=== PATIENT | female | born 1935 | race Caucasian/White ===

== ENCOUNTER → 2016-11-27 | Day surgery (SDC) | payer MEDICARE ==
[~2016-11-27] MED LIST: ASPI81CH CHEW; BUPIVACAINE HCL PF 0.5% 30 ML VIAL ONE; BUPIVACAINE HCL PF 0.75% 30 ML VIAL ONE; CALC250T PO; HYDR-3583 PO; LACTCAP8 PO; LOSA100T PO; OMEGCAP PO; OMEP20TA PO; PROPOFOL 200 MG/20 ML AMP IV ONE; SYNT25TA PO; TRIA37.53 PO; TRIAMCINOLONE ACETONIDE 40 MG/ML VIAL I-ARTICULR ONE; VITA10003 PO; methylPREDNISolone ACETATE 40 MG/ML VIAL I-ARTICULR ONE
--- NOTE | 2016-12-04 00:09 | M6 ---
cc: TIMOTHY ROMERO M.D. DATE: 11/27/2016 DATE OF : 1935 PROCEDURE Fluoroscopically guided injection right lumbar facet joints (right L2-3, L3-4, L4-5 and L5-S1 facet joints). History and physical was completed and signed. Consent was signed. Procedure site was marked. Medications were listed and reconciled. Pain score was recorded. Allergies were noted. Time out was taken. Fluoroscopy time was recorded where applicable. Sedation was administered or directed by Dr. Romero. The patient was given oxygen. The patient was monitored by a registered nurse. Total procedure time was greater than 15 minutes. PROCEDURE NOTE: IV was started, blood pressure cuff, pulse oximeter and EKG were applied. The patient was placed in the prone position on a Paul table sedated with small amounts of propofol titrated to effect. Vital signs were monitored and remained stable throughout the procedure. The lumbar area was prepped with alcohol and 10% Betadine solution, draped with sterile drapes. Fluoroscopy was used in a Brett dog view to clearly visualize the right lumbar facet joints at L2-3, L3-4, L4-5 and L5-S1. Separate sterile 3-1/2 inch 25-gauge spinal needles were advanced into these joints under fluoroscopic guidance. There was negative aspiration for blood or any other type of fluid and at each location the patient was given 1 mL of Marcaine 0.75% which contained 10 mg of Kenalog. Following the procedure the patient was taken to the recovery room with stable vital signs neurologically intact. She will be evaluated immediately and with followup to determine if she has a subjective decrease in her usual pain and a corresponding objective increase her functional capabilities. WMD RENUKA Carvalho/RONNY /9:41 AM /11:53 PM
== END | disposition home or self-care (01) ==
LOC: PHSDC 08:24
PROVIDERS: ATTEND Pain Medicine Interventional Pain Medicine
DX: M54.5 Low back pain (principal)
CPT/HCPCS: 64493; 64494; 64495; 99152; J1030; J3301

== ENCOUNTER 2017-08-14 06:56 | Day surgery (SDC) | payer MEDICARE ==
[~2017-08-14 06:56] MED LIST changes: +ALIG4CAP PO; -ASPI81CH CHEW; -BUPIVACAINE HCL PF 0.5% 30 ML VIAL ONE; -BUPIVACAINE HCL PF 0.75% 30 ML VIAL ONE; -CALC250T PO; +FERR325T8 PO; +FLUTI110I INH; +HYDR-3516 PO; +LEVO25TA4 PO; -LOSA100T PO; +MULTTAB67 PO; -OMEGCAP PO; -OMEP20TA PO; -PROPOFOL 200 MG/20 ML AMP IV ONE; -SYNT25TA PO; -TRIAMCINOLONE ACETONIDE 40 MG/ML VIAL I-ARTICULR ONE; -VITA10003 PO; -methylPREDNISolone ACETATE 40 MG/ML VIAL I-ARTICULR ONE
[2017-08-14] MEDS ORDERED: VITA100064 PO (07:22)
[2017-08-14] MEDS ORDERED: AMIT10TA6 PO (07:22)
[2017-08-14] MEDS ORDERED: ASPI81CH7 CHEW (07:22)
[2017-08-14] MEDS ORDERED: LOSA100T PO (07:22)
[2017-08-14] MEDS ORDERED: OMEP20TA PO (07:22)
[2017-08-14] MEDS ORDERED: CALC250T PO (07:22)
== END 2017-08-14 07:20 | disposition home or self-care (01) ==
LOC: HRIP 06:56 → HROP 06:56
PROVIDERS: ATTEND Neurological Surgery
DX: M48.061 Spinal stenosis, lumbar region without neurogenic claudication (principal); Z53.09 Procedure and treatment not carried out because of other contraindication

== ENCOUNTER 2017-09-01 09:30 | Emergency (ER) | payer MEDICARE ==
[~2017-09-01] VITALS: Ht 160 cm; Wt 72.0 kg
[~2017-09-01 09:30] MED LIST changes: -ALIG4CAP PO; +AMIT10TA6 PO; +ASPI81CH7 CHEW; +CALC250T PO; -FERR325T8 PO; -HYDR-3516 PO; -HYDR-3583 PO; -LEVO25TA4 PO; +LOSA100T PO; -MULTTAB67 PO; +OMEP20TA PO; +VITA100064 PO
[2017-09-01 09:31] VITALS: BP 141/83; PULSE 82; RESP 15; TEMP 97.8; O2SAT 97
[2017-09-01] MEDS ORDERED: ONDANSETRON HCL 4 MG/2 ML VIAL IVP ONE (10:15)
[2017-09-01] MEDS ORDERED: SODIUM CHLORIDE 0.9% FLUSH 10 ML FLUSH IV FLUSH PRN (10:15)
[2017-09-01] MEDS ORDERED: URIB118C PO (10:25)
[2017-09-01] MEDS ORDERED: OMEGCAP PO (10:25)
[2017-09-01] MEDS ORDERED: MULT1TAB46 (10:25)
[2017-09-01] MEDS ORDERED: MACR100C2 PO (10:25)
[2017-09-01] MEDS ORDERED: FERR325C PO (10:25)
[2017-09-01 10:43] LABS: BASOPHIL # 0.1 TH/MM3 (0-0.2); EOSINOPHIL # 0.3 TH/MM3 (0-0.4); EOSINOPHIL % 4.7 % (0.0-4.0); HEMATOCRIT 36.7 % (35.0-46.0); HEMO FLAGS DIFF FINAL; LYMPH % 13.1 % (9.0-44.0); LYMPHOCYTE # 0.9 TH/MM3 (1.0-4.8); MEAN CELL VOLUME 88.4 FL (80.0-100.0); MEAN CORPUSCULAR HEMOGLOBIN 30.2 PG (27.0-34.0); MEAN CORPUSCULAR HGB CONC 34.2 % (32.0-36.0); MONO % 9.2 % (0.0-8.0); PLATELET COUNT 284 TH/MM3 (150-450); RED BLOOD COUNT 4.15 MIL/MM3 (4.00-5.30); RED CELL DISTRIBUTION WIDTH 12.6 % (11.6-17.2); WHITE BLOOD COUNT 6.9 TH/MM3 (4.0-11.0)
[2017-09-01 10:54] LABS: BLOOD, URINE SMALL (NEG); COMMENT (UR) CULTURE INDICATED; CULTURE IF INDICATED CULTURE INDICATED; GLUCOSE,URINE NEG (NEG); KETONE, URINE NEG (NEG); NITRITE,URINE NEG (NEG); URINE COLOR YELLOW (YELLW/STRAW)
[2017-09-01 11:00] LABS: BICARBONATE 23.5 MEQ/L (21.0-32.0); POTASSIUM 3.1 MEQ/L (3.5-5.1)
--- NOTE | 2017-09-01 11:24 | PD ---
HPI Chief Complaint: Complaint Time Seen by Provider: 10:01 Travel History International Travel<30 days: No Contact w/Intl Traveler<30days: No Traveled to known affect area: No History of Present Illness HPI Patient's 82 years old and arrives with her son due to urinary frequency overnight causing insomnia. Additional complaints include anorexia vomiting generalized weakness abdominal cramping and diarrhea. She has a history of urinary tract infection and has been on different antibiotics and has been following with Dr. Donovan of urology. Currently she is on Macrobid. She was advised to self catheterize however due to arthritis is unable to. She's had no fever. PFSH Past Medical History Arthritis: Yes Asthma: No Autoimmune Disease: No Anxiety: No Heart Rhythm Problems: No Cancer: Yes (SKIN CANCER ON NOSE-) Cardiovascular Problems: Yes High Cholesterol: No Chemotherapy: No Chest Pain: Yes Congestive Heart Failure: No COPD: No Cerebrovascular Accident: No Diabetes: No Diminished Hearing: No Endocrine: No Gastrointestinal Disorders: Yes GERD: Yes Glaucoma: No Genitourinary: No Headaches: Yes Hepatitis: No Hiatal Hernia: Yes Hypertension: Yes Immune Disorder: No Kidney Stones: No Medical other: Yes (GERD;GI DISORDERS;DIARRHEA;HYPERCHOLESTEROLEMIA;) Musculoskeletal: Yes Neurologic: No Psychiatric: Yes (CLAUSTRAPHOBIC) Reproductive: No Respiratory: No Myocardial Infarction: No Radiation Therapy: No Renal Failure: No Seizures: No Sleep Apnea: No Thyroid Disease: No Ulcer: No Dilation and Curettage (D&C): Yes Past Surgical History Abdominal Surgery: No AICD: No Cardiac Surgery: No Ear Surgery: No Endocrine Surgery: No Eye Surgery: Yes (MARGARITA. CATARACT EXTRACT.) Genitourinary Surgery: No Gynecologic Surgery: Yes (D & C, UTERINE POLYPECTOMY) Neurologic Surgery: Yes (LUMBAR FUSION) Oral Surgery: Yes (UPPER DENTURES, T & A) Pacemaker: No Thoracic Surgery: No Other Surgery: Yes Social History Alcohol Use: Yes (occasional) Tobacco Use: No (STOPPED 30 YEARS AGO) Substance Use: No Allergies-Medications (Allergen,Severity, Reaction): Coded Allergies: niacin (Unverified Allergy, Severe, VISION CHANGES, 09/01/17) lactose (Unverified Allergy, Mild, 09/01/17) gi upsets Tlyscgr-Jlz-Emo Reductase Inhibitor (Verified Allergy, Unknown, 09/01/17) rosuvastatin (Verified Allergy, Unknown, 09/01/17) doxycycline (Verified Adverse Reaction, Unknown, vomiting, 09/01/17) Reported Meds & Prescriptions Reported Meds & Active Scripts Active Ativan (Lorazepam) 0.5 Mg Tab 0.5 Mg PO HS PRN Ceftin (Cefuroxime Axetil) 250 Mg Tab 250 Mg PO BID 7 Days Reported [place]-3 Fish Oil/Vitamin (Fish Oil-Cholecalciferol) 1,000-1,000 Mg Cap 1 Cap PO DAILY Uribel (Hylknfvrnoq-Zpish-Pyvqeooqg Blue) 1 Cap 118 Mg PO BID Macrobid (Nitrofurantoin Monoh/Nitrofur Macro) 100 Mg Cap 100 Mg PO BID Iron (Ferrous Sulfate) 325 Mg Cap 325 Mg PO EVERY OTHER DAY Multi Vitamin Daily (Multiple Vitamin) 1 Tab Tab Amitriptyline (Amitriptyline HCl) 10 Mg Tab 10 Mg PO HS Omeprazole 20 Mg Tab 20 Mg PO DAILY Vitamin D3 (Cholecalciferol) 1,000 Unit Tab 1,000 Units PO DAILY Calcium Citrate 250 Mg Calcium Tab 600 Mg PO DAILY Aspirin Children's (Aspirin) 81 Mg Chew 81 Mg CHEW DAILY Losartan (Losartan Potassium) 100 Mg Tab 100 Mg PO DAILY Flovent Hfa 12 GM Inh (Fluticasone Propionate) 110 Mcg/Act Inh 1 Puff INH BID Probiotic (Lactobacillus Acidophilus) 1 Cap Cap 1 Cap PO 3XWEEK Triamterene-Hydrochlorothiazide 37.5-25 Mg Cap 1 Cap PO DAILY Review of Systems Except as stated in HPI: all other systems reviewed are Neg General / Constitutional: No: Fever Physical Exam Narrative GENERAL: 82-year-old female well-nourished well-developed no acute distress SKIN: Focused skin assessment warm/dry. HEAD: Atraumatic. Normocephalic. EYES: Pupils equal and round. No scleral icterus. No injection or drainage. ENT: No nasal bleeding or discharge. Mucous membranes pink and moist. NECK: Trachea midline. No JVD. CARDIOVASCULAR: Regular rate and rhythm. No murmur appreciated. RESPIRATORY: No accessory muscle use. Clear to auscultation. Breath sounds equal bilaterally. GASTROINTESTINAL: Abdomen soft, non-tender, nondistended. Hepatic and splenic margins not palpable. MUSCULOSKELETAL: No obvious deformities. No clubbing. No cyanosis. No edema. NEUROLOGICAL: Awake and alert. No obvious cranial nerve deficits. Motor grossly within normal limits. Normal speech. PSYCHIATRIC: Appropriate mood and affect; insight and judgment normal. Data Data Last Documented VS Vital Signs Date Time Temp Pulse Resp B/P (MAP) Pulse Ox O2 Delivery O2 Flow Rate FiO2 09/01/17 14:00 09/01/17 09:31 97.8 82 15 97 Vital Signs Date Time Temp Pulse Resp B/P (MAP) Pulse Ox O2 Delivery O2 Flow Rate FiO2 09/01/17 14:00 09/01/17 09:31 97.8 82 15 141/83 (102) 97 Orders Orders Basic Metabolic Panel (Bmp) (09/01/17 10:01) Complete Blood Count With Diff (09/01/17 10:01) Urinalysis - C+S If Indicated (09/01/17 10:01) Iv Access Insert/Monitor (09/01/17 10:01) Ecg Monitoring (09/01/17 10:01) Oximetry (09/01/17 10:01) Ondansetron Inj (Zofran Inj) (09/01/17 10:15) Sodium Chloride 0.9% Flush (Ns Flush) (09/01/17 10:15) Urine Culture (09/01/17 10:05) Ceftriaxone Inj (Rocephin Inj) (09/01/17 11:45) Ed Discharge Order (09/01/17 11:35) Urinary Catheter Insert/Apply (09/01/17 12:20) Lidocaine 2% Jelly (Xylocaine 2% Jelly) (09/01/17 12:30) Lidocaine 2% Jelly (Xylocaine 2% Jelly) (09/01/17 12:30) Labs Laboratory Tests Test 09/01/17 10:05 White Blood Count 6.9 TH/MM3 Red Blood Count 4.15 MIL/MM3 Hemoglobin 12.5 GM/DL Hematocrit 36.7 % Mean Corpuscular Volume 88.4 FL Mean Corpuscular Hemoglobin 30.2 PG Mean Corpuscular Hemoglobin Concent 34.2 % Red Cell Distribution Width 12.6 % Platelet Count 284 TH/MM3 Mean Platelet Volume 8.0 FL Neutrophils (%) (Auto) 72.0 % Lymphocytes (%) (Auto) 13.1 % Monocytes (%) (Auto) 9.2 % Eosinophils (%) (Auto) 4.7 % Basophils (%) (Auto) 1.0 % Neutrophils # (Auto) 5.0 TH/MM3 Lymphocytes # (Auto) 0.9 TH/MM3 Monocytes # (Auto) 0.6 TH/MM3 Eosinophils # (Auto) 0.3 TH/MM3 Basophils # (Auto) 0.1 TH/MM3 CBC Comment DIFF FINAL Differential Comment Urine Color YELLOW Urine Turbidity CLEAR Urine pH 7.0 Urine Specific [place] 1.008 Urine Protein TRACE mg/dL Urine Glucose (UA) NEG mg/dL Urine Ketones NEG mg/dL Urine Occult Blood SMALL Urine Nitrite NEG Urine Bilirubin NEG Urine Urobilinogen LESS THAN 2.0 MG/DL Urine Leukocyte Esterase SMALL Urine RBC 13 /hpf Urine WBC 25 /hpf Microscopic Urinalysis Comment CULTURE INDICATED Blood Urea Nitrogen 15 MG/DL Creatinine 0.83 MG/DL Random Glucose 106 MG/DL Calcium Level 9.8 MG/DL Sodium Level 130 MEQ/L Potassium Level 3.1 MEQ/L Chloride Level 95 MEQ/L Carbon Dioxide Level 23.5 MEQ/L Anion Gap 12 MEQ/L Estimat Glomerular Filtration Rate 65 ML/MIN MDM Medical Decision Making Medical Screen Exam Complete: Yes Emergency Medical Condition: Yes Medical Record Reviewed: Yes Differential Diagnosis Multidrug resistant UTI, urinary tension, bladder outlet syndrome Narrative Course CBC & BMP Diagram 09/01/17 10:05 Calcium Level 9.8 UA: presentation could reflect UTI Transmittal ultrasound reveals about 200 cc of residual urine 20 minutes after voiding. The patient voided about 75 cc of coronary nurse. A Murillo catheter was placed. The patient will go home with antibiotics. Due to her insomnia, major reason for the visit, we'll provide a few days of Ativan with very strict precautions regarding its use. Follow up with Dr. Redman. Return precautions discussed. Diagnosis Primary Impression: Frequency of urination Additional Impression: Dysuria Referrals: Karri Donovan MD 2 days Additional Instructions: You have a choice when it comes to health care, and we are glad that you chose [facility]. Hopefully, we have met your expectations on today's visit. You are welcome to return to [facility] at any time, as we are committed to meeting the health care needs of our community. Med/Other Pt SpecificInfo: Prescription(s) given Scripts Lorazepam (Ativan) 0.5 Mg Tab 0.5 MG PO HS Y for INSOMNIA, #10 TAB 0 Refills Prov: Seymour Clemente MD 09/01/17 Cefuroxime (Ceftin) 250 Mg Tab 250 MG PO BID for 7 Days, #14 TAB Prov: Seymour Clemente MD 09/01/17 Disposition: 01 DISCHARGE HOME Condition: Stable Seymour Clemente MD Sep 01, 2017 11:23
[2017-09-01] MEDS ORDERED: CEFU1TAB42 PO (11:34)
[2017-09-01] MEDS ORDERED: cefTRIAXone INJ 1,000 MG in SODIUM CHLORIDE 0.9% INJ 100 ML IV ONE (11:45)
[2017-09-01] MEDS ORDERED: LORA-392 PO (12:21)
[2017-09-01] MEDS ORDERED: LIDOCAINE HCL 2% JELLY 5 ML SYRINGE TOPICAL ONE (12:30)
[2017-09-01] MEDS ORDERED: LIDOCAINE 2% JELLY 30 ML TUBE TOPICAL ONE (12:30)
== END 2017-09-01 13:47 | disposition home or self-care (01) ==
LOC: NEPC 09:30
DX: R35.0 Frequency of micturition (principal); R30.0 Dysuria; R53.1 Weakness; R63.0 Anorexia; R11.10 Vomiting, unspecified; R19.7 Diarrhea, unspecified; I10 Essential (primary) hypertension
CPT/HCPCS: 51702; 80048; 81001; 85025; 87086; 96365; 99284; J0696

== ENCOUNTER 2017-11-04 18:10 | Emergency (ER) | payer MEDICARE ==
[~2017-11-04 18:10] MED LIST changes: +CEFU1TAB18 PO; +FERR325C PO; +LORA-392 PO; +MACR100C2 PO; +MULT1TAB46; +OMEGCAP PO; -OMEP20TA PO; +OMEP20TA93 PO; +URIB118C PO
[2017-11-04 18:14] VITALS: BP 177/79; PULSE 81; RESP 14; TEMP 98.2; O2SAT 99
[2017-11-04] MEDS ORDERED: NEOMYCIN/POLYMYXIN/BACITRACIN OINT 15 GM TUBE TOPICAL ONE (18:45)
--- NOTE | 2017-11-04 18:49 | PD ---
HPI . Bleeding Chief Complaint: Unbundler Problem Time Seen by Provider: 18:24 Travel History International Travel<30 days: No Contact w/Intl Traveler<30days: No Traveled to known affect area: No History of Present Illness HPI This patient presents with a chief complaint of bleeding around her suprapubic catheter insertion site. Onset was today. Bleeding is very mild. There is very little associated pain. She is not having any abdominal pain. She is not running any fevers. She has had no problems with her urine. Patient reports that the suprapubic catheter was placed because she was having recurrent urinary tract infection secondary to inadequate emptying of her bladder. She believes that the catheter was originally placed approximately 2 months ago. It was changed on October 15. She had some purulent drainage around the site following the catheter change on October 15. However, the purulent drainage has subsequently cleared. She developed bloody drainage today which was alarming to her and caused her to come to the hospital. She is not on an anticoagulant but does take fish oil and aspirin. PFSH Past Medical History Arthritis: Yes Asthma: No Autoimmune Disease: No Anxiety: No Heart Rhythm Problems: No Cancer: Yes (SKIN CANCER ON NOSE-) Cardiovascular Problems: Yes (HTN) High Cholesterol: No Chemotherapy: No Chest Pain: Yes Congestive Heart Failure: No COPD: No Cerebrovascular Accident: No Diabetes: No Diminished Hearing: No Endocrine: No Gastrointestinal Disorders: Yes GERD: Yes Glaucoma: No Genitourinary: No Headaches: Yes Hepatitis: No Hiatal Hernia: Yes Hypertension: Yes Immune Disorder: No Kidney Stones: No Medical other: Yes (GERD;GI DISORDERS;DIARRHEA;HYPERCHOLESTEROLEMIA;) Musculoskeletal: Yes Neurologic: No Psychiatric: Yes (CLAUSTRAPHOBIC) Reproductive: No Respiratory: No Myocardial Infarction: No Radiation Therapy: No Renal Failure: No Seizures: No Sleep Apnea: No Thyroid Disease: No Ulcer: No Dilation and Curettage (D&C): Yes Past Surgical History Abdominal Surgery: No AICD: No Cardiac Surgery: No Ear Surgery: No Endocrine Surgery: No Eye Surgery: Yes (MARGARITA. CATARACT EXTRACT.) Genitourinary Surgery: No Gynecologic Surgery: Yes (D & C, UTERINE POLYPECTOMY) Neurologic Surgery: Yes (LUMBAR FUSION) Oral Surgery: Yes (UPPER DENTURES, T & A) Pacemaker: No Thoracic Surgery: No Other Surgery: Yes Social History Alcohol Use: Yes (occasional) Tobacco Use: No (STOPPED 30 YEARS AGO) Substance Use: No Allergies-Medications (Allergen,Severity, Reaction): Coded Allergies: niacin (Unverified Allergy, Severe, VISION CHANGES, 11/04/17) lactose (Unverified Allergy, Mild, 11/04/17) gi upsets [place]-Vfm-Luj Reductase Inhibitor (Verified Allergy, Unknown, 11/04/17) rosuvastatin (Verified Allergy, Unknown, 11/04/17) doxycycline (Verified Adverse Reaction, Unknown, vomiting, 11/04/17) Reported Meds & Prescriptions Reported Meds & Active Scripts Active Ativan (Lorazepam) 0.5 Mg Tab 0.5 Mg PO HS PRN Reported [place]-3 Fish Oil/Vitamin (Fish Oil-Cholecalciferol) 1,000-1,000 Mg Cap 1 Cap PO DAILY Multi Vitamin Daily (Multiple Vitamin) 1 Tab Tab Amitriptyline (Amitriptyline HCl) 10 Mg Tab 10 Mg PO HS Omeprazole 20 Mg Tab 20 Mg PO DAILY Vitamin D3 (Cholecalciferol) 1,000 Unit Tab 1,000 Units PO DAILY Calcium Citrate 250 Mg Calcium Tab 600 Mg PO DAILY Aspirin Children's (Aspirin) 81 Mg Chew 81 Mg CHEW DAILY Losartan (Losartan Potassium) 100 Mg Tab 100 Mg PO DAILY Flovent Hfa 12 GM Inh (Fluticasone Propionate) 110 Mcg/Act Inh 1 Puff INH BID Probiotic (Lactobacillus Acidophilus) 1 Cap Cap 1 Cap PO 3XWEEK Triamterene-Hydrochlorothiazide 37.5-25 Mg Cap 1 Cap PO DAILY Review of Systems Except as stated in HPI: all other systems reviewed are Neg General / Constitutional: No: Fever, Chills Gastrointestinal: No: Nausea (urine color and output has been good.), Vomiting , Diarrhea, Abdominal Pain Genitourinary: Positive: Other Skin: Positive Other Physical Exam Narrative GENERAL: Pleasant, elderly woman who is in no acute distress. SKIN: warm/dry. The skin around the suprapubic catheter insertion site appears irritated. It is friable. There is no drainage. The surrounding skin is not red or hot. HEAD: Normocephalic. EYES: Pupils equal and round. No scleral icterus. No injection or drainage. ENT: No nasal bleeding or discharge. Mucous membranes pink and moist. NECK: Trachea midline. Full range of motion without pain.. CARDIOVASCULAR: Regular rate and rhythm. RESPIRATORY: No accessory muscle use. Clear to auscultation. Breath sounds equal bilaterally. GASTROINTESTINAL: Abdomen soft. Nontender. Bowel sounds present. Nondistended. : Her urine is clear and yellow. MUSCULOSKELETAL: No obvious deformities. NEUROLOGICAL: Awake and alert. No obvious cranial nerve deficits. Motor grossly within normal limits. Normal speech. PSYCHIATRIC: Appropriate mood and affect; insight and judgment normal. Data Data Last Documented VS Vital Signs Date Time Temp Pulse Resp B/P (MAP) Pulse Ox O2 Delivery O2 Flow Rate FiO2 11/04/17 18:14 98.2 81 14 177/79 (111) 99 Orders Orders Kwbjnjgo-Cnrog-Tciimenxuy Oint (Neospori (11/04/17 18:45) Change Dressing (11/04/17 18:35) Wound Culture And Gram Stain (11/04/17 18:40) MDM Medical Decision Making Medical Screen Exam Complete: Yes Emergency Medical Condition: Yes Medical Record Reviewed: Yes (the patient's suprapubic catheter most of them place at an outside facility. I do not see any records related to that in our system.) Differential Diagnosis Differential diagnosis includes but is not limited to local skin irritation, local wound infection, cellulitis, abscess Narrative Course This patient presents with irritation around her suprapubic catheter site. It actually looks good. It just looks irritated. I have instructed her to use an antibiotic ointment around the site twice a day. I have instructed her to check with the urologist tomorrow for further instructions. A culture has been sent. Diagnosis Primary Impression: Encounter for suprapubic catheter care Additional Instructions: Place and antibiotic ointment such as Neosporin around the catheter insertion site twice a day. Call your urologist tomorrow for further instructions. Disposition: 01 DISCHARGE HOME Condition: Stable Margie Jaimes MD Nov 04, 2017 18:49
== END 2017-11-04 18:57 | disposition home or self-care (01) ==
LOC: NEPD 18:10
DX: Z43.5 Encounter for attention to cystostomy (principal); L98.9 Disorder of the skin and subcutaneous tissue, unspecified; B95.61 Methicillin susceptible Staphylococcus aureus infection as the cause of diseases classified elsewhere; I10 Essential (primary) hypertension; K21.9 Gastro-esophageal reflux disease without esophagitis; Z87.891 Personal history of nicotine dependence
CPT/HCPCS: 86403; 87070; 87186; 87205; 99283

== ENCOUNTER → 2018-02-23 | Day surgery (SDC) | payer MEDICARE ==
[~2018-02-23] MED LIST changes: +ATROPINE SULFATE 1% OPHT SOLN 2 ML BTL ONE; -CEFU1TAB18 PO; +DEXAMETHASONE SOD PHOS 4 MG/ML VIAL ONE; +EPINEPHrine HCL (1:1000) 1 MG/ML VIAL ONE; -FERR325C PO; +FLURBIPROFEN 0.03% OPHT SOLN 2.5 ML BTL ONE; +HYALURONIDASE/LIDOCAINE/BUPIVACAINE 5 ML SYR ONE; +LACTATED RINGER'S 1000 ML INJ 1,000 ML ONE; -MACR100C2 PO; +NEOMYCIN/POLYMYXIN/DEXAMETHASONE OPTH OINT 3.5 GM TUBE ONE; +PHENYLEPHRINE HCL 2.5 % OPTH SOLN 15 ML BTL ONE; +PROPOFOL 100 MG/10 ML INJ IV ONE; +SODIUM CHLORIDE 0.9% INJ 10 ML ONE; +TETRACAINE 0.5% OPTH SOLN 15 ML BTL ONE; +TROPICAMIDE 1% OPHT SOLN 15 ML BTL ONE; -URIB118C PO; +ceFAZolin INJ 1,000 MG VIAL ONE
--- NOTE | 2018-03-15 11:06 | MP ---
cc: Bladimir Roca MD DATE OF OPERATION: 02/23/2018 PREOPERATIVE DIAGNOSIS: Dislocated intraocular lens implant, left eye. POSTOPERATIVE DIAGNOSIS: Dislocated intraocular lens implant, left eye. PROCEDURE PERFORMED: Pars plana vitrectomy, removal of dislocated intraocular lens implant and placement of secondary intraocular lens implant, left eye. ANESTHESIA: MAC. SURGEON: Bladimir Roca MD COMPLICATIONS: None. DETAILS OF PROCEDURE: After the patient gave informed consent, the left eye was anesthetized using retrobulbar anesthesia. She was then brought to the operating room and prepared and draped in the usual sterile fashion. A wire lid speculum was placed in the patient's left eye. A superior 180 degree conjunctival peritomy was then performed using 0.12 forceps and Sigrid scissors. Excellent hemostasis was obtained with the bipolar cautery. 23-gauge vitrectomy cannulas were then placed in the lower temporal, superotemporal and superonasal quadrants 3 mm posterior to the corneoscleral limbus. An infusion cannula was placed lower temporally. Superiorly a 6 mm corneoscleral shelled frown incision was made using a 64 blade, crescent knife and keratome. The vitrector was then used to remove the vitreous. The dislocated lens was grasped using intraocular forceps and maneuvered into the anterior chamber and removed. A 15.5 diopter [id number] lens was then placed into the anterior chamber. A superonasal peripheral iridectomy was performed using the vitreous cutter. Careful indirect ophthalmoscopy with scleral depression was then performed and no peripheral retinal breaks were noted. The corneal scleral incision was closed using three interrupted 10-0 nylon sutures. The two superior sclerotomy sites were closed using an interrupted 6-0 Vicryl suture. The infusion cannula was removed. The conjunctiva was re-apposed using two interrupted 7-0 Vicryl sutures. Subconjunctival injections of dexamethasone and Ancef were placed. An atropine drop, Maxitrol ointment and a patch and shield were then applied. The patient tolerated the procedure well. There were no complications. She will followup tomorrow in tomorrow in our [facility] office. Bladimir Roca MD TAB/KD , 10:52 AM , 11:06 AM
== END | disposition home or self-care (01) ==
LOC: ESDC 13:24
PROVIDERS: ATTEND Ophthalmology Retina Specialist
DX: T85.22XA Displacement of intraocular lens, initial encounter (principal)
CPT/HCPCS: 00142; 00145; 66985; 67036; 67121; J0171; J0690; J1100; J7120; V2630

== ENCOUNTER 2018-04-05 07:37 | Inpatient (IN) | payer MEDICARE ==
[2018-04-05] VITALS (7 sets, daily range): BP systolic 131–196; BP diastolic 64–86; PULSE 66–82; RESP 16–20; TEMP 97.8–97.9; O2SAT 94–98
[~2018-04-05] VITALS: Ht 160 cm; Wt 69.0 kg
[~2018-04-05 07:37] MED LIST changes: -ATROPINE SULFATE 1% OPHT SOLN 2 ML BTL ONE; -DEXAMETHASONE SOD PHOS 4 MG/ML VIAL ONE; -EPINEPHrine HCL (1:1000) 1 MG/ML VIAL ONE; -FLURBIPROFEN 0.03% OPHT SOLN 2.5 ML BTL ONE; -HYALURONIDASE/LIDOCAINE/BUPIVACAINE 5 ML SYR ONE; -LACTATED RINGER'S 1000 ML INJ 1,000 ML ONE; -NEOMYCIN/POLYMYXIN/DEXAMETHASONE OPTH OINT 3.5 GM TUBE ONE; -PHENYLEPHRINE HCL 2.5 % OPTH SOLN 15 ML BTL ONE; -PROPOFOL 100 MG/10 ML INJ IV ONE; -SODIUM CHLORIDE 0.9% INJ 10 ML ONE; -TETRACAINE 0.5% OPTH SOLN 15 ML BTL ONE; -TROPICAMIDE 1% OPHT SOLN 15 ML BTL ONE; -ceFAZolin INJ 1,000 MG VIAL ONE
[2018-04-05] MEDS ORDERED: FERR325T18 PO (08:08)
[2018-04-05] MEDS ORDERED: VITA250T3 PO (08:08)
[2018-04-05] MEDS ORDERED: OXYB5TAB8 PO (08:08)
[2018-04-05] MEDS ORDERED: CRANCAP2 PO (08:08)
[2018-04-05] MEDS ORDERED: SODIUM CHLORID 0.9% 500 ML INJ 500 ML IV ONE (08:15)
--- NOTE | 2018-04-05 08:17 | PD ---
HPI Chief Complaint: General Weakness Time Seen by Provider: 07:48 Travel History International Travel<30 days: No Contact w/Intl Traveler<30days: No Traveled to known affect area: No History of Present Illness HPI 82-year-old female complains of generalized malaise and weakness and urinary frequency. Patient has history of urinary frequency for a long time. Patient has been seen by personal physician and urologist. Patient had Murillo cath placement, including indwelling and suprapubic Murillo cath. Murillo cath was removed. Patient was given medication for the bladder problem. Patient however continued to have urinary frequency and up on a going to the bathroom. Patient states that she had generalized malaise and weakness after getting up all day and all night to urinate. Patient denies any headache. Patient denies any chest pain or shortness of breath. Patient denies abdominal pain. Patient denies any back pain. Patient denies any dysuria. Patient denies any fever chills. Patient denies any focal weakness or numbness of the extremity. PFSH Past Medical History Arthritis: Yes Asthma: No Autoimmune Disease: No Anxiety: No Heart Rhythm Problems: No Cancer: Yes (SKIN CANCER ON NOSE-) Cardiovascular Problems: Yes (HTN) High Cholesterol: No Chemotherapy: No Chest Pain: Yes Congestive Heart Failure: No COPD: No Cerebrovascular Accident: No Diabetes: No Diminished Hearing: No Endocrine: No Gastrointestinal Disorders: Yes GERD: Yes Glaucoma: No Genitourinary: No Headaches: Yes Hepatitis: No Hiatal Hernia: Yes Hypertension: Yes Immune Disorder: No Kidney Stones: No Medical other: Yes (GERD;GI DISORDERS;DIARRHEA;HYPERCHOLESTEROLEMIA;) Musculoskeletal: Yes Neurologic: No Psychiatric: Yes (CLAUSTRAPHOBIC) Reproductive: No Respiratory: No Myocardial Infarction: No Radiation Therapy: No Renal Failure: No Seizures: No Sleep Apnea: No Thyroid Disease: No Ulcer: No Tetanus Vaccination: > 5 Years Dilation and Curettage (D&C): Yes Past Surgical History Abdominal Surgery: No AICD: No Cardiac Surgery: No Ear Surgery: No Endocrine Surgery: No Eye Surgery: Yes (MARGARITA. CATARACT EXTRACT.) Genitourinary Surgery: No Gynecologic Surgery: Yes (D & C, UTERINE POLYPECTOMY) Neurologic Surgery: Yes (LUMBAR FUSION) Oral Surgery: Yes (UPPER DENTURES, T & A) Pacemaker: No Thoracic Surgery: No Other Surgery: Yes Social History Alcohol Use: Yes (occasional) Tobacco Use: No Substance Use: No Allergies-Medications (Allergen,Severity, Reaction): Coded Allergies: niacin (Unverified Allergy, Severe, VISION CHANGES, 04/05/18) lactose (Unverified Allergy, Mild, 04/05/18) gi upsets Hyejmqs-Yax-Gbv Reductase Inhibitor (Verified Allergy, Unknown, 04/05/18) rosuvastatin (Verified Allergy, Unknown, 04/05/18) doxycycline (Verified Adverse Reaction, Unknown, vomiting, 04/05/18) Reported Meds & Prescriptions Reported Meds & Active Scripts Active Ativan (Lorazepam) 0.5 Mg Tab 0.5 Mg PO HS PRN Reported Cranberry Urinary Comfort (Vitamins C & E) 1 Cap 1 Cap PO DAILY Vitamin C (Ascorbic Acid) 250 Mg Tab 1,000 Mg PO DAILY Ferrous Sulfate 325 Mg (65 Mg Iron) Tablet 325 Mg PO DAILY Ditropan (Oxybutynin Chloride) 5 Mg Tab 5 Mg PO Q8HR [place]-3 Fish Oil/Vitamin (Fish Oil-Cholecalciferol) 1,000-1,000 Mg Cap 1 Cap PO DAILY Multi Vitamin Daily (Multiple Vitamin) 1 Tab Tab Vitamin D3 (Cholecalciferol) 1,000 Unit Tab 1,000 Units PO DAILY Calcium Citrate 250 Mg Calcium Tab 600 Mg PO DAILY Aspirin Children's (Aspirin) 81 Mg Chew 81 Mg CHEW DAILY Losartan (Losartan Potassium) 100 Mg Tab 100 Mg PO DAILY Flovent Hfa 12 GM Inh (Fluticasone Propionate) 110 Mcg/Act Inh 1 Puff INH BID Probiotic (Lactobacillus Acidophilus) 1 Cap Cap 1 Cap PO 3XWEEK Triamterene-Hydrochlorothiazide 37.5-25 Mg Cap 1 Cap PO DAILY Review of Systems General / Constitutional: No: Fever Eyes: No: Visual changes HENT: No: Headaches Cardiovascular: No: Chest Pain or Discomfort Respiratory: No: Shortness of Breath Gastrointestinal: No: Abdominal Pain Genitourinary: Positive: Frequency, No: Dysuria Musculoskeletal: No: Pain Skin: No Rash Neurologic: No: Weakness Psychiatric: No: Depression Endocrine: No: Polydipsia Hematologic/Lymphatic: No: Easy Bruising Physical Exam Narrative GENERAL: Well-nourished, well-developed patient. SKIN: Focused skin assessment warm/dry. HEAD: Normocephalic. EYES: No scleral icterus. No injection or drainage. NECK: Supple, trachea midline. No JVD or lymphadenopathy. CARDIOVASCULAR: Regular rate and rhythm without murmurs, gallops, or rubs. RESPIRATORY: Breath sounds equal bilaterally. No accessory muscle use. GASTROINTESTINAL: Abdomen soft, non-tender, nondistended. MUSCULOSKELETAL: No cyanosis, or edema. BACK: Nontender without obvious deformity. No CVA tenderness. Neurologic exam: Patient is awake and alert 3. Patient moves all extremity well. No obvious focal neurologic deficit. Data Data Last Documented VS Vital Signs Date Time Temp Pulse Resp B/P (MAP) Pulse Ox O2 Delivery O2 Flow Rate FiO2 04/05/18 08:22 66 18 196/80 (118) 98 Room Air 04/05/18 07:42 97.9 Orders Orders Complete Blood Count With Diff (04/05/18 08:04) Basic Metabolic Panel (Bmp) (04/05/18 08:04) Urinalysis - C+S If Indicated (04/05/18 08:04) Iv Access Insert/Monitor (04/05/18 08:04) Ecg Monitoring (04/05/18 08:04) Oximetry (04/05/18 08:04) Urinary Catheter Insert/Apply (04/05/18 08:04) Sodium Chlorid 0.9% 500 Ml Inj (Ns 500 M (04/05/18 08:15) Electrocardiogram (04/05/18 ) Acetaminophen (Tylenol) (04/05/18 08:45) Labs Laboratory Tests Test 04/05/18 08:15 White Blood Count 8.6 TH/MM3 Red Blood Count 3.62 MIL/MM3 Hemoglobin 11.0 GM/DL Hematocrit 32.3 % Mean Corpuscular Volume 89.1 FL Mean Corpuscular Hemoglobin 30.5 PG Mean Corpuscular Hemoglobin Concent 34.2 % Red Cell Distribution Width 12.5 % Platelet Count 281 TH/MM3 Mean Platelet Volume 7.1 FL Neutrophils (%) (Auto) 83.9 % Lymphocytes (%) (Auto) 7.7 % Monocytes (%) (Auto) 6.3 % Eosinophils (%) (Auto) 1.4 % Basophils (%) (Auto) 0.7 % Neutrophils # (Auto) 7.2 TH/MM3 Lymphocytes # (Auto) 0.7 TH/MM3 Monocytes # (Auto) 0.5 TH/MM3 Eosinophils # (Auto) 0.1 TH/MM3 Basophils # (Auto) 0.1 TH/MM3 CBC Comment DIFF FINAL Differential Comment Urine Color YELLOW Urine Turbidity HAZY Urine pH 7.0 Urine Specific [place] 1.011 Urine Protein NEG mg/dL Urine Glucose (UA) NEG mg/dL Urine Ketones NEG mg/dL Urine Occult Blood NEG Urine Nitrite NEG Urine Bilirubin NEG Urine Urobilinogen LESS THAN 2.0 MG/DL Urine Leukocyte Esterase SMALL Urine RBC 1 /hpf Urine WBC 4 /hpf Urine Squamous Epithelial Cells 7 /hpf Urine Bacteria RARE /hpf Urine Mucus FEW /lpf Microscopic Urinalysis Comment CULT NOT INDICATED Blood Urea Nitrogen 17 MG/DL Creatinine 0.79 MG/DL Random Glucose 111 MG/DL Calcium Level 9.0 MG/DL Sodium Level 124 MEQ/L Potassium Level 3.9 MEQ/L Chloride Level 88 MEQ/L Carbon Dioxide Level 25.0 MEQ/L Anion Gap 11 MEQ/L Estimat Glomerular Filtration Rate 69 ML/MIN MDM Medical Decision Making Medical Screen Exam Complete: Yes Emergency Medical Condition: Yes Interpretation(s) 9:04 AM. CBC WBC 8.6. Hemoglobin 11.0 hematocrit 32.3. 83 neutrophil. Sodium 124. UA negative. Differential Diagnosis Differential diagnosis including dehydration, electrolyte imbalance, UTI, pyelonephritis, sepsis. Narrative Course 82-year-old female with generalized malaise and weakness. History of urinary frequency that required a Murillo cath and suprapubic cath in the past. Diagnosis Primary Impression: Hyponatremia Additional Impression: Jamaal Silva MD April 05, 2018 08:17
[2018-04-05 08:25] LABS: AUTOMATED NEUTROPHIL # 7.2 TH/MM3 (1.8-7.7); BASOPHIL # 0.1 TH/MM3 (0-0.2); BASOPHIL % 0.7 % (0.0-2.0); EOSINOPHIL # 0.1 TH/MM3 (0-0.4); EOSINOPHIL % 1.4 % (0.0-4.0); HEMATOCRIT 32.3 % (35.0-46.0); LYMPH % 7.7 % (9.0-44.0); LYMPHOCYTE # 0.7 TH/MM3 (1.0-4.8); MEAN CELL VOLUME 89.1 FL (80.0-100.0); MEAN CORPUSCULAR HEMOGLOBIN 30.5 PG (27.0-34.0); MEAN CORPUSCULAR HGB CONC 34.2 % (32.0-36.0); MEAN PLATELET VOLUME 7.1 FL (7.0-11.0); MONO % 6.3 % (0.0-8.0); MONOCYTE # 0.5 TH/MM3 (0-0.9); NEUT % 83.9 % (16.0-70.0); PLATELET COUNT 281 TH/MM3 (150-450); RED BLOOD COUNT 3.62 MIL/MM3 (4.00-5.30); RED CELL DISTRIBUTION WIDTH 12.5 % (11.6-17.2); WHITE BLOOD COUNT 8.6 TH/MM3 (4.0-11.0)
[2018-04-05 08:42] LABS: BACTERIA, URINE RARE /hpf; BILIRUBIN, URINE NEG (NEG); BLOOD, URINE NEG (NEG); GLUCOSE,URINE NEG (NEG); KETONE, URINE NEG (NEG); MUCUS URINE FEW /lpf (OCC); NITRITE,URINE NEG (NEG); SQUAMOUS EPITHELIAL CELL URINE 7 /hpf (0-5); URINE COLOR YELLOW (YELLW/STRAW); URINE LEUKOCYTE ESTERASE SMALL (NEG)
[2018-04-05 08:44] LABS: CREATININE 0.79 MG/DL (0.50-1.00)
[2018-04-05] MEDS ORDERED: ACETAMINOPHEN 325 MG TAB PO ONE (08:45)
[2018-04-05] MEDS ORDERED: ETOMIDATE 40 MG/20 ML VIAL ONE (09:11)
[2018-04-05] MEDS ORDERED: NALOXONE HCL 0.4 MG/ML AMP IV PUSH PRN (09:45)
[2018-04-05] MEDS: LOSARTAN 50 MG TAB PO SCH (09:45)
[2018-04-05] MEDS ORDERED: MAGNESIUM HYDROXIDE SUSP 30 ML CUP PO PRN (09:45)
[2018-04-05] MEDS ORDERED: ONDANSETRON ODT 4 MG TAB PO PRN (09:45)
[2018-04-05] MEDS ORDERED: SODIUM CHLORIDE 0.9% FLUSH 10 ML FLUSH IV FLUSH PRN (09:45)
[2018-04-05] MEDS ORDERED: SODIUM CHLOR 0.9% 1000 ML INJ 1,000 ML IV SCH (10:00)
--- NOTE | 2018-04-05 10:21 | RADRPT ---
EXAM DATE: 04/05/2018 10:14 AM EDT AGE/SEX: 82 years / Female INDICATIONS: General weakness. CLINICAL DATA: This is the patient's initial encounter. Patient reports that signs and symptoms have been present for 1 week and indicates a pain score of 5/10. MEDICAL/SURGICAL HISTORY: . History of bladder issues. Multiple surgeries, different types of catheter placements to correct. Back surgery ten years ago. . Back surgery ten years ago.Bladder higgins rgery 2016 COMPARISON: [facility] [place], CHEST SINGLE AP, 10/28/2016. . FINDINGS: A single AP view of the chest demonstrates the lungs to be symmetrically aerated without evidence of mass, infiltrate or effusion. The cardiomediastinal contours are unremarkable. Osseous structures a re intact. CONCLUSION: No acute intrathoracic disease. Stable examination of the chest.. Electronically signed by: oSham Arguello MD 04/05/2018 10:20 AM EDT
[2018-04-05] MEDS: FLUTICASONE PROPIONATE 110 MCG/ACT 12 GM INHALER INH SCH ×2 (10:23→20:40)
[2018-04-05] MEDS: NS + KCL 20 MEQ INJ 1,000 ML IV SCH ×2 (10:26→20:41)
[2018-04-05 10:28] LABS: FREE T4 1.06 NG/DL (0.76-1.46)
--- NOTE | 2018-04-05 10:36 | HHI.HP ---
HPI Service [facility] Hospitalists Primary Care Physician Terrence Azul Jr, MD Admission Diagnosis Hyponatremia. Weakness. Urinary frequency. Chief Complaint: Generalized weakness with urinary frequency Travel History International Travel<30 Days: No Contact w/Intl Traveler <30 Da: No Traveled to Known Affected Are: No History of Present Illness This is an 82-year-old female patient with past medical history which includes hypertension, hyperlipidemia, hypothyroidism, GERD, Cantor's esophagitis and long-standing urinary frequency with incomplete bladder emptying. Patient follows with [facility] Dr. Donovan. And has had both indwelling Murillo catheters as well as suprapubic catheter in the past. Patient has tried taking Toviaz, Vesicare and Myrbetriq in the past as well. Patient presents to the emergency department with complaints of frequent urination and increased generalized weakness with fatigue. Review of Systems Constitutional: COMPLAINS OF: Fatigue, DENIES: Fever, Chills Respiratory: DENIES: Cough, Sputum production, Shortness of breath Cardiovascular: DENIES: Chest pain, Palpitations Gastrointestinal: DENIES: Abdominal pain, Constipation, Diarrhea, Nausea, Vomiting Genitourinary: COMPLAINS OF: Urinary frequency Neurologic: DENIES: Headache, Localized weakness, Speech Problems Psychiatric: DENIES: Anxiety, Confusion, Depression Past Family Social History Past Medical History hypertension, hyperlipidemia, hypothyroidism, GERD, Cantor's esophagitis and long-standing urinary frequency with incomplete bladder emptying Past Surgical History Suprapubic catheter placement, EGD/colonoscopy, back surgery, D&C, tonsillectomy and adenoidectomy, total knee replacement Reported Medications Ativan (Lorazepam) 0.5 Mg Tab 0.5 Mg PO HS PRN Cranberry Urinary Comfort (Vitamins C & E) 1 Cap 1 Cap PO DAILY Vitamin C (Ascorbic Acid) 250 Mg Tab 1,000 Mg PO DAILY Ferrous Sulfate 325 Mg (65 Mg Iron) Tablet 325 Mg PO DAILY Ditropan (Oxybutynin Chloride) 5 Mg Tab 5 Mg PO Q8HR [place]-3 Fish Oil/Vitamin (Fish Oil-Cholecalciferol) 1,000-1,000 Mg Cap 1 Cap PO DAILY Multi Vitamin Daily (Multiple Vitamin) 1 Tab Tab Vitamin D3 (Cholecalciferol) 1,000 Unit Tab 1,000 Units PO DAILY Calcium Citrate 250 Mg Calcium Tab 600 Mg PO DAILY Aspirin Children's (Aspirin) 81 Mg Chew 81 Mg CHEW DAILY Losartan (Losartan Potassium) 100 Mg Tab 100 Mg PO DAILY Flovent Hfa 12 GM Inh (Fluticasone Propionate) 110 Mcg/Act Inh 1 Puff INH BID Probiotic (Lactobacillus Acidophilus) 1 Cap Cap 1 Cap PO 3XWEEK Triamterene-Hydrochlorothiazide 37.5-25 Mg Cap 1 Cap PO DAILY Allergies: Coded Allergies: niacin (Unverified Allergy, Severe, VISION CHANGES, 04/05/18) lactose (Unverified Allergy, Mild, 04/05/18) gi upsets Wodjaid-Dco-Unm Reductase Inhibitor (Verified Allergy, Unknown, 04/05/18) rosuvastatin (Verified Allergy, Unknown, 04/05/18) doxycycline (Verified Adverse Reaction, Unknown, vomiting, 04/05/18) Family History CVA, heart disease, diabetes mellitus and cancer unknown type Social History Patient is Denies EtOH use tobacco use or illicit drug use Physical Exam Vital Signs Vital Signs Date Time Temp Pulse Resp B/P (MAP) Pulse Ox O2 Delivery O2 Flow Rate FiO2 04/05/18 09:58 20 04/05/18 09:48 69 20 160/83 (108) 98 Room Air 04/05/18 08:22 66 18 196/80 (118) 98 Room Air 04/05/18 08:20 66 16 97 04/05/18 07:42 97.9 80 20 190/86 (120) 98 Physical Exam GENERAL: This is a well-nourished, well-developed patient, in no apparent distress. SKIN: No rashes, ecchymoses or lesions. Cool and dry. HEAD: Atraumatic. Normocephalic. No temporal or scalp tenderness. EYES: Extraocular motions intact. No scleral icterus. No injection or drainage. CARDIOVASCULAR: Regular rate and rhythm murmur present RESPIRATORY: Clear to auscultation. Breath sounds equal bilaterally. GASTROINTESTINAL: Abdomen soft, non-tender, nondistended. MUSCULOSKELETAL: Extremities without clubbing, cyanosis, or edema. No joint tenderness, effusion, or edema noted. No calf tenderness. Negative Homans sign bilaterally. NEUROLOGICAL: Awake and alert. No focal deficits. Motor and sensory grossly within normal limits. 4-5 out of 5 muscle strength in all muscle groups. Normal speech. Laboratory Laboratory Tests Test 04/05/18 08:15 White Blood Count 8.6 Red Blood Count 3.62 Hemoglobin 11.0 Hematocrit 32.3 Mean Corpuscular Volume 89.1 Mean Corpuscular Hemoglobin 30.5 Mean Corpuscular Hemoglobin Concent 34.2 Red Cell Distribution Width 12.5 Platelet Count 281 Mean Platelet Volume 7.1 Neutrophils (%) (Auto) 83.9 Lymphocytes (%) (Auto) 7.7 Monocytes (%) (Auto) 6.3 Eosinophils (%) (Auto) 1.4 Basophils (%) (Auto) 0.7 Neutrophils # (Auto) 7.2 Lymphocytes # (Auto) 0.7 Monocytes # (Auto) 0.5 Eosinophils # (Auto) 0.1 Basophils # (Auto) 0.1 CBC Comment DIFF FINAL Differential Comment Urine Color YELLOW Urine Turbidity HAZY Urine pH 7.0 Urine Specific [place] 1.011 Urine Protein NEG Urine Glucose (UA) NEG Urine Ketones NEG Urine Occult Blood NEG Urine Nitrite NEG Urine Bilirubin NEG Urine Urobilinogen LESS THAN 2.0 Urine Leukocyte Esterase SMALL Urine RBC 1 Urine WBC 4 Urine Squamous Epithelial Cells 7 Urine Bacteria RARE Urine Mucus FEW Microscopic Urinalysis Comment CULT NOT INDICATED Blood Urea Nitrogen 17 Creatinine 0.79 Random Glucose 111 Calcium Level 9.0 Sodium Level 124 Potassium Level 3.9 Chloride Level 88 Carbon Dioxide Level 25.0 Anion Gap 11 Estimat Glomerular Filtration Rate 69 Free Thyroxine 1.06 Thyroid Stimulating Hormone 3rd Gen 2.740 Result Diagram: 04/05/1815 04/05/18 0815 Imaging Last Impressions Chest X-Ray 04/05/18 0938 Signed Impressions: CONCLUSION: No acute intrathoracic disease. Stable examination of the chest.. Caprini VTE Risk Assessment Caprini VTE Risk Assessment: Mod/High Risk (score >= 2) Caprini Risk Assessment Model Point Value = 1 Point Value = 2 Point Value = 3 Point Value = 5 Age 41-60 Minor surgery BMI > 25 kg/m2 Swollen legs Varicose veins or History of unexplained or recurrent spontaneous Oral contraceptives or hormone replacement Sepsis (< 1 month) Serious lung disease, including pneumonia (< 1 month) Abnormal pulmonary function Acute myocardial infarction Congestive heart failure (< 1 month) History of inflammatory bowel disease Medical patient at bed rest Age 61-74 Arthroscopic surgery Major open surgery (> 45 min) Laparoscopic surgery (> 45 min) Malignancy Confined to bed (> 72 hours) Immobilizing plaster cast Central venous access Age >= 75 History of VTE Family history of VTE Factor V Leiden Prothrombin [id number] Lupus anticoagulant Anticardiolipin antibodies Elevated serum homocysteine Heparin-induced thrombocytopenia Other congenital or acquired thrombophilia Stroke (< 1 month) Elective arthroplasty Hip, pelvis, or leg fracture Acute spinal cord injury (< 1 month) Prophylaxis Regimen Total Risk Factor Score Risk Level Prophylaxis Regimen 0-1 Low Early ambulation 2 Moderate Order ONE of the following: *Sequential Compression Device (SCD) *Heparin 5000 units SQ BID 3-4 Higher Order ONE of the following medications: *Heparin 5000 units SQ TID *Enoxaparin/Lovenox 40 mg SQ daily (WT < 150 kg, CrCl > 30 mL/min) *Enoxaparin/Lovenox 30 mg SQ daily (WT < 150 kg, CrCl > 10-29 mL/min) *Enoxaparin/Lovenox 30 mg SQ BID (WT < 150 kg, CrCl > 30 mL/min) AND/OR *Sequential Compression Device (SCD) 5 or more Highest Order ONE of the following medications: *Heparin 5000 units SQ TID (Preferred with Epidurals) *Enoxaparin/Lovenox 40 mg SQ daily (WT < 150 kg, CrCl > 30 mL/min) *Enoxaparin/Lovenox 30 mg SQ daily (WT < 150 kg, CrCl > 10-29 mL/min) *Enoxaparin/Lovenox 30 mg SQ BID (WT < 150 kg, CrCl > 30 mL/min) AND *Sequential Compression Device (SCD) Assessment and Plan Problem List: (1) Hyponatremia ICD Codes: E87.1 - Hypo-osmolality and hyponatremia Status: Acute Plan: This is an 82-year-old female patient with past medical history which includes hypertension, hyperlipidemia, hypothyroidism, GERD, Cantor's esophagitis and long-standing urinary frequency with incomplete bladder emptying. Patient follows with [facility] Dr. Donovan. And has had both indwelling Murillo catheters as well as suprapubic catheter in the past. Patient has tried taking Toviaz, Vesicare and Myrbetriq in the past as well. - Sodium on admission 124, - NS with 20 meq KCL at 85 ml/H - hold Triamterene-HCTZ DVT prophylaxis with SCDs (2) Weakness ICD Codes: R53.1 - Weakness Status: Acute Plan: - hyponatremia could be contributing - PT consulted (3) Urinary frequency ICD Codes: R35.0 - Frequency of micturition Plan: This is an 82-year-old female patient with past medical history which includes hypertension, hyperlipidemia, hypothyroidism, GERD, Cantor's esophagitis and long-standing urinary frequency with incomplete bladder emptying. Patient follows with [facility] Dr. Donovan. And has had both indwelling Murillo catheters as well as suprapubic catheter in the past. Patient has tried taking Toviaz, Vesicare and Myrbetriq in the past as well. -Indwelling Murillo catheter -may require urology consult (4) HTN (hypertension) ICD Codes: I10 - Essential (primary) hypertension Plan: - Continue Losartan 100mg daily - monitor BP Assessment and Plan Patient examined. Assessment and plan formulated with Deloris Karimi PA-C. I agree with the above. vasopressin and HCTZ stopped. Pt receiving IV NS observe NA level Consider Urology consultation. Deloris Karimi April 05, 2018 10:36 Jorge Davila DO April 05, 2018 23:30
--- NOTE | 2018-04-05 12:48 | EKG ---
Date Performed: 04/05/2018 Time Performed: 08:41:06 PTAGE: 82 years EKG: Sinus rhythm MODERATE VOLTAGE CRITERIA FOR LVH, CONSIDER NORMAL VARIANT BORDERLINE ECG Compared to PREVIOUS TRACING , PVCs have resolved. PREVIOUS TRACIN10/28/2016 13.18.21 DOCTOR: Christiano Mccray Interpretating Date/Time 04/05/2018 12:46:44
[2018-04-05] MEDS: ACETAMINOPHEN 325 MG TAB PO PRN (14:20)
[2018-04-05] MEDS: LORazepam 0.5 MG TAB PO PRN ×2 (14:22→20:39)
[2018-04-05] MEDS ORDERED: cloNIDine HCL 0.1 MG TAB PO PRN (18:30)
[2018-04-05] MEDS: ACETAMINOPHEN/HYDROcodone 325 MG/5 MG TAB PO PRN (20:39)
[2018-04-05] MEDS: SODIUM CHLORIDE 0.9% FLUSH 10 ML FLUSH IV FLUSH SCH (20:40)
[2018-04-06] VITALS: BP 134/60; PULSE 82; RESP 17; TEMP 98; O2SAT 97
[2018-04-06] MEDS: LORazepam 0.5 MG TAB PO PRN ×4 (02:11→22:33)
[2018-04-06] MEDS: ACETAMINOPHEN 325 MG TAB PO PRN ×2 (02:15→15:01)
[2018-04-06 04:00] VITALS: BP 133/61; PULSE 78; RESP 16; TEMP 98; O2SAT 98
[2018-04-06 05:52] LABS: BICARBONATE 25.2 MEQ/L (21.0-32.0); CALCIUM 8.1 MG/DL (8.5-10.1); CREATININE 0.69 MG/DL (0.50-1.00)
[2018-04-06 07:50] LABS: AUTOMATED NEUTROPHIL # 3.2 TH/MM3 (1.8-7.7); BASOPHIL % 0.8 % (0.0-2.0); EOSINOPHIL # 0.1 TH/MM3 (0-0.4); EOSINOPHIL % 3.1 % (0.0-4.0); HEMATOCRIT 30.2 % (35.0-46.0); HEMOGLOBIN 10.5 GM/DL (11.6-15.3); LYMPH % 19.5 % (9.0-44.0); LYMPHOCYTE # 0.9 TH/MM3 (1.0-4.8); MEAN CELL VOLUME 89.2 FL (80.0-100.0); MEAN CORPUSCULAR HEMOGLOBIN 31.1 PG (27.0-34.0); MEAN CORPUSCULAR HGB CONC 34.9 % (32.0-36.0); MEAN PLATELET VOLUME 7.1 FL (7.0-11.0); MONO % 9.8 % (0.0-8.0); MONOCYTE # 0.5 TH/MM3 (0-0.9); NEUT % 66.8 % (16.0-70.0); PLATELET COUNT 253 TH/MM3 (150-450); RED BLOOD COUNT 3.38 MIL/MM3 (4.00-5.30); RED CELL DISTRIBUTION WIDTH 12.7 % (11.6-17.2); WHITE BLOOD COUNT 4.8 TH/MM3 (4.0-11.0)
[2018-04-06 08:00] VITALS: BP 160/69; PULSE 80; RESP 16; TEMP 98; O2SAT 98
[2018-04-06] MEDS: SODIUM CHLORIDE 0.9% FLUSH 10 ML FLUSH IV FLUSH SCH (09:00)
[2018-04-06] MEDS: FLUTICASONE PROPIONATE 110 MCG/ACT 12 GM INHALER INH SCH ×2 (09:00→21:00)
[2018-04-06] MEDS: LOSARTAN 50 MG TAB PO SCH (09:32)
[2018-04-06] MEDS: NS + KCL 20 MEQ INJ 1,000 ML IV SCH (09:32)
[2018-04-06] MEDS: ASPIRIN 81 MG CHEW TAB CHEW SCH (09:33)
[2018-04-06] MEDS: ACETAMINOPHEN/HYDROcodone 325 MG/5 MG TAB PO PRN ×2 (09:34→22:33)
[2018-04-06] MEDS ORDERED: TIMO0.5S30 LEFT EYE (11:15)
--- NOTE | 2018-04-06 11:43 | HHI.PR ---
Subjective Remarks feels better. Objective Vitals heart reg lung cta abd s/nt ext no edema collins Vital Signs Date Time Temp Pulse Resp B/P (MAP) Pulse Ox O2 Delivery O2 Flow Rate FiO2 04/06/18 08:00 98.0 80 16 160/69 (99) 98 04/06/18 04:00 98.0 78 16 133/61 (85) 98 04/06/18 00:00 98.0 82 17 134/60 (84) 97 04/05/18 20:05 97.9 67 16 131/81 (98) 98 04/05/18 16:00 97.8 82 16 147/64 (91) 94 Result Diagram: 04/06/18 07 04/06/18 0414 Imaging Last Impressions Chest X-Ray 04/05/18 0913 Signed Impressions: CONCLUSION: No acute intrathoracic disease. Stable examination of the chest.. A/P Problem List: (1) Urinary frequency ICD Codes: R35.0 - Frequency of micturition Status: Acute Plan: This is an 82-year-old female patient with past medical history which includes hypertension, hyperlipidemia, hypothyroidism, GERD, Cantor's esophagitis and long-standing urinary frequency with incomplete bladder emptying. has had both indwelling Collins catheters as well as suprapubic catheter in the past. Patient has tried taking Toviaz, Vesicare and Myrbetriq in the past without success. Has recently been placed on ddavp. She has required collins catheter and even had SPC for about 3 months She presents with severe urinary frequency and states inability to sleep and being completely exhausted. A collins was placed by the ED but I have no recorded amount of retention. Pt requested a urological opinion from [place] [facility] for her sx's Will ask urology for opinion and ?d/c with collins and f/u office for complete evaluation. (2) Hyponatremia ICD Codes: E87.1 - Hypo-osmolality and hyponatremia Status: Acute Plan: related to diuretics and ddavp stop these drug. ns given will stop ivf recheck in AM (3) Hypertension ICD Codes: I10 - Essential (primary) hypertension Status: Chronic (4) Hypothyroidism ICD Codes: E03.9 - Hypothyroidism, unspecified Status: Chronic (5) GERD (gastroesophageal reflux disease) ICD Codes: K21.9 - Gastro-esophageal reflux disease without esophagitis Status: Christiano Black MD April 06, 2018 11:43
[2018-04-06 12:00] VITALS: BP 120/56; PULSE 75; RESP 17; TEMP 97.4; O2SAT 97
[2018-04-06 16:00] VITALS: BP 163/76; PULSE 100; RESP 17; TEMP 97.8; O2SAT 98
[2018-04-06 20:00] VITALS: BP 136/63; PULSE 88; RESP 18; TEMP 98.1; O2SAT 98
[2018-04-06] MEDS: TIMOLOL MALEATE 0.5% OPHT SOLN 5 ML BTL LEFT EYE SCH (22:35)
[2018-04-07 00:01] VITALS: BP 108/53; PULSE 83; RESP 17; TEMP 97.8; O2SAT 97
[2018-04-07 04:00] VITALS: BP 156/64; PULSE 79; RESP 18; TEMP 97.8; O2SAT 97
[2018-04-07 06:50] LABS: BICARBONATE 24.7 MEQ/L (21.0-32.0); CALCIUM 8.3 MG/DL (8.5-10.1); CREATININE 0.62 MG/DL (0.50-1.00)
[2018-04-07 08:00] VITALS: BP 150/70; PULSE 76; RESP 18; TEMP 97.8; O2SAT 98
[2018-04-07] MEDS: ACETAMINOPHEN 325 MG TAB PO PRN ×2 (08:07→13:47)
[2018-04-07] MEDS: TIMOLOL MALEATE 0.5% OPHT SOLN 5 ML BTL LEFT EYE SCH (08:07)
[2018-04-07] MEDS: LORazepam 0.5 MG TAB PO PRN ×2 (08:07→14:10)
[2018-04-07] MEDS: LOSARTAN 50 MG TAB PO SCH (08:08)
[2018-04-07] MEDS: FLUTICASONE PROPIONATE 110 MCG/ACT 12 GM INHALER INH SCH (08:08)
[2018-04-07] MEDS: ASPIRIN 81 MG CHEW TAB CHEW SCH (08:08)
[2018-04-07] MEDS: SODIUM CHLORIDE 0.9% FLUSH 10 ML FLUSH IV FLUSH SCH ×2 (08:16→08:49)
--- NOTE | 2018-04-07 10:07 | HHI.PR ---
Subjective Remarks pt c/o intermitted bladder spasm pain. Objective Vitals heart reg lung cta abd s/nt ext no edema collins. clear urine Vital Signs Date Time Temp Pulse Resp B/P (MAP) Pulse Ox O2 Delivery O2 Flow Rate FiO2 04/07/18 09:07 18 04/07/18 08:00 97.8 76 18 150/70 (96) 98 04/07/18 04:00 97.8 79 18 156/64 (94) 97 04/07/18 00:01 97.8 83 17 108/53 (71) 97 04/06/18 20:00 98.1 88 18 136/63 (87) 98 04/06/18 16:00 97.8 100 17 163/76 (105) 98 04/06/18 12:00 97.4 75 17 120/56 (77) 97 Result Diagram: 04/06/18 0726 04/07/18 0428 Imaging Last Impressions Chest X-Ray 04/05/18 0938 Signed Impressions: CONCLUSION: No acute intrathoracic disease. Stable examination of the chest.. A/P Problem List: (1) Urinary frequency ICD Codes: R35.0 - Frequency of micturition Status: Acute Plan: This is an 82-year-old female patient with past medical history which includes hypertension, hyperlipidemia, hypothyroidism, GERD, Cantor's esophagitis and long-standing urinary frequency with incomplete bladder emptying. has had both indwelling Collins catheters as well as suprapubic catheter in the past. Patient has tried taking Toviaz, Vesicare and Myrbetriq in the past without success. Has recently been placed on ddavp. She has required collins catheter and even had SPC for about 3 months She presents with severe urinary frequency and states inability to sleep and being completely exhausted. A collins was placed by the ED but I have no recorded amount of retention. Pt requested a urological opinion from [facility] for her sx's Will ask urology for opinion and ?d/c with collins and f/u office for complete evaluation. disposition later today once Urology opinion obtained. (2) Hyponatremia ICD Codes: E87.1 - Hypo-osmolality and hyponatremia Status: Acute Plan: related to diuretics and ddavp stop these drug. ns given will stop ivf recheck in AM (3) Hypertension ICD Codes: I10 - Essential (primary) hypertension Status: Chronic (4) Hypothyroidism ICD Codes: E03.9 - Hypothyroidism, unspecified Status: Chronic (5) GERD (gastroesophageal reflux disease) ICD Codes: K21.9 - Gastro-esophageal reflux disease without esophagitis Status: Chronic Christiano Sprague MD April 07, 2018 10:07
--- NOTE | 2018-04-07 11:12 | MB ---
cc: Erlin Garrison DO DATE: 04/07/2018 HISTORY OF PRESENT ILLNESS: This is a pleasant 82-year-old female who presented with weakness and was noted to have a sodium of 124. The patient was started on DDAVP for her urinary issues where she was having frequent urination at night and developed hyponatremia. She is seen by Dr. Klaus mayorga at [facility] and has a long history of incomplete bladder emptying with placement of a suprapubic catheter approximately 1 year ago, which she had for approximately 3 months. She has been on multiple anticholinergic medication, which has not been successful. She also has a history of chronic low back pain and has an injury around the L5 level. PAST MEDICAL HISTORY: Includes hypertension, hyperlipidemia, hypothyroidism, GERD, urinary frequency, incomplete bladder emptying. PAST SURGICAL HISTORY: Noted for suprapubic catheter placement 1 year ago, EGD, colonoscopy, prior back surgery, D and C, tonsil and adenoids removed and a total knee replacement. MEDICATIONS: Please refer to the chart. ALLERGIES: NIACIN, LACTOSE, STATINS, DOXYCYCLINE. FAMILY HISTORY: Negative for CVA, heart disease, diabetes and some form of cancer. SOCIAL HISTORY: Denies alcohol, tobacco or drug use. She is a prior nurse kitchen bath designer. REVIEW OF SYSTEMS: Complains of fatigue. Denies fever, chills, chest pain, abdominal pain. Notes urinary frequency with nocturia. Denies headache, speech problems. She denies gait disturbances. Does have low back pain. Remaining review of systems were reviewed and were negative. PHYSICAL EXAMINATION: VITAL SIGNS: Temperature 98.7, heart rate 76, respiratory rate 18, 150/70 is her blood pressure, 98% on room air. GENERAL: She is a well-developed, well-nourished, 82-year-old female in no acute distress. HEENT: Normocephalic, atraumatic. Pupils equal, round, regular and reactive to light. Extraocular movements intact. NECK: Supple. HEART: Regular rate and rhythm. LUNGS: Clear. ABDOMEN: Soft, nontender, nondistended. GENITOURINARY: Normal female external genitalia with Murillo catheter in place. EXTREMITIES: Show no evidence of cyanosis, clubbing or edema. NEUROLOGIC: Cranial nerves 2-12 are intact. SKIN: There are no lesions. PSYCHIATRIC: Generalized mood. LABORATORY DATA: White count 4.8, hemoglobin 10.5, hematocrit 30.2, platelet count 253. Sodium 137, potassium 4.2, chloride 104, CO2 24.7, BUN 14, creatinine 0.62, glucose is 82. Urinalysis shows 1 red cell, 4 white cells. Culture not indicated. ASSESSMENT: This is an 82-year-old female with a history of incomplete bladder emptying with urinary retention. RECOMMENDATIONS: Recommend attempting a trial of Urecholine 25 mg p.o. t.i.d. Murillo to leg bag catheter. Recommend discharge with the Murillo catheter and followup with Dr. Enrique in the office. Thank you for the consult and allowing me to participate in the care of this patient. DO CAESAR GrimaldoT/ABDOULAYE , 10:51 AM , 11:11 AM
[2018-04-07 12:00] VITALS: BP 152/70; PULSE 70; RESP 17; TEMP 97.6; O2SAT 98
[2018-04-07] MEDS ORDERED: BETH25 PO (13:11)
--- NOTE | 2018-04-07 13:12 | HHI.DCPOC ---
Discharge Care Plan Diagnosis: (1) Hyponatremia (2) Urinary frequency (3) HTN (hypertension) (4) Hypothyroidism (5) GERD (gastroesophageal reflux disease) Goals to Promote Your Health * To prevent worsening of your condition and complications * To maintain your health at the optimal level Directions to Meet Your Goals Take your medications as prescribed Follow your dietary instruction Follow activity as directed Keep your appointments as scheduled Take your immunizations and boosters as scheduled If your symptoms worsen call your PCP, if no PCP go to Urgent Care Center or Emergency Room Smoking is Dangerous to Your Health. Avoid second hand smoke Call the 24-hour hour crisis hotline for domestic abuse at Christiano Sprague MD April 07, 2018 13:12
--- NOTE | 2018-04-07 13:16 | HHI.FF ---
Face to Face Verification Diagnosis: (1) Hyponatremia (2) Urinary frequency Physical Therapy Order: Evaluate and Treat, Improve ambulation Home Health Nursing Order: Medical education Signs/symptoms of disease process Medication education-adverse effect Nursing assessment with vital signs Murillo catheter maintenance I have seen patient Danelle So on 04/07/18. My clinical findings support the need for the requested home health care services because: Limited ability to care for self High risk of falls I certify that my clinical findings support that this patient is homebound because: Unsteady gait/balance Christiano Sprague MD April 07, 2018 13:16
[2018-04-07] MEDS ORDERED: BETHANECHOL CHL 25 MG TAB PO SCH (14:00)
[2018-04-07 16:00] VITALS: BP 151/70; PULSE 89; RESP 18; TEMP 97.2; O2SAT 98
== END 2018-04-07 17:32 | disposition home health service (06) | DRG 696 ==
LOC: NEPE 07:37 → NEDA 10:05 → OBSVTOIN 10:06 → N06B 11:31 → N06A 18:33
PROVIDERS: ADMIT Hospitalist; ATTEND Hospitalist
DX: R35.0 Frequency of micturition (principal); I10 Essential (primary) hypertension; E87.1 Hypo-osmolality and hyponatremia; E03.9 Hypothyroidism, unspecified; E78.5 Hyperlipidemia, unspecified; K21.9 Gastro-esophageal reflux disease without esophagitis; R33.9 Retention of urine, unspecified; K22.70 Barrett's esophagus without dysplasia; Z88.1 Allergy status to other antibiotic agents; Z88.8 Allergy status to other drugs, medicaments and biological substances; Z79.82 Long term (current) use of aspirin; Z79.899 Other long term (current) drug therapy
CPT/HCPCS: 51702; 71045; 80048; 81001; 84439; 84443; 85025; 93005; 96360; J3480; J7040

== ENCOUNTER 2018-06-15 14:04 | Observation (INO) ==
[2018-06-15] MEDS ORDERED: Sod Chloride 0.9% Inj 1,000 ML IV.SIG ONE (18:00)
--- NOTE | 2018-06-15 18:43 | ED ---
HPI General Chief complaint: Weakness Stated complaint: Pain Time Seen by Provider: 06/15/18 17:45 History of Present Illness HPI Narrative: 82-year-old female is brought to the ED for evaluation of weakness. The patient states that she has had worsening weakness in her lower extremities for the past 3 months. States that she has a history of chronic low back pain and has had multiple lumbar spine fusions, has spinal stenosis and spondylolisthesis. She has pain that radiates from her right hip down to her right de souza, describes as a burning pain. States that last night when she moved from a sitting to standing position from her walker her legs "gave out" and she fell toward her right side. She denies any head trauma or loss of consciousness. States that she had such weakness in her legs that she could not get up on her own and her grandson and a friend had to get her up and move her to bed. States that she was essentially unable to move on her own today and required a large amount of assistance from her grandson to get from the bed to sitting in the chair. The patient does admit that she started taking Cymbalta last week for the first time. Over the last month she has had bladder problems and is being treated by urology, currently has an indwelling Murillo catheter which she had changed 1 week ago. Denies any chest pain, shortness of breath, abdominal pain, nausea, vomiting, diarrhea, constipation, dizziness. No other complaints or concerns. PCP is Dr. Townsned. Related Data Home Medications Medication Instructions Recorded Confirmed aspirin 81 mg PO DAILY 06/15/18 06/15/18 calcium citrate 500 mg PO DAILY 06/15/18 06/15/18 duloxetine [Cymbalta] 20 mg PO BID 06/15/18 06/15/18 fluticasone [Flovent HFA] 1 puff INHALATION BID 06/15/18 06/15/18 omeprazole 20 mg PO DAILY 06/15/18 06/15/18 Allergies Allergy/AdvReac Type Severity Reaction Status Date / Time niacin Allergy Severe Hives Verified 06/15/18 18:49 rosuvastatin Allergy Intermediate Hives Verified 06/15/18 17:23 doxycycline AdvReac Intermediate vomiting Verified 06/15/18 17:23 lactose AdvReac Intermediate Diarrhea Verified 06/15/18 18:49 Yejorxr-Upy-Qxm Reductase AdvReac Intermediate Cramping Verified 06/15/18 17:23 Inhibitor of the Muscles Review of Systems Except as stated in HPI: all other systems reviewed are negative [facility] Medical History Medical History Asthma (Acute) HBP (high blood pressure) (Acute) Hx of thyroid disease (Acute) Surgical History Surgical History History of knee replacement (Acute) Hx of cataract surgery (Acute) Social History Social History Substance History: No History of Abuse Second Hand Smoke Exposure: No Smoking Status: Never smoker How Often Do You Have a Drink Containing Alcohol: Never Recent Travel in [facility] within the Last 8 Weeks: No Recent Out of Country Travel within the Last 8 Weeks: No Immunization History Tetanus Immunization: >5 Years Hx Influenza Vaccine This Season: No Exam Narrative Exam Narrative: GENERAL: Well-nourished and well-developed pleasant patient in no acute distress who is nontoxic appearing. SKIN: Warm and dry. HEAD: Normocephalic and atraumatic. EYES: No injection, drainage, or hyphema noted. PERRLA. EOMI. ENT: No nasal drainage noted. Oropharynx is clear. NECK: Supple and the trachea is midline. CARDIOVASCULAR: Regular rate and rhythm. RESPIRATORY: Breath sounds are equal bilaterally with no accessory muscle use, wheezing, rhonchi, or crackles. MUSCULOSKELETAL: No obvious deformities, swelling, cyanosis, or ecchymosis is present throughout the upper and lower extremities. Patient unable to lift right leg more than 15 degrees actively, she has full passive range of motion in right hip and knee without any pain elicited. Full active range of motion in left leg. Distal pulses are 2+ throughout. BACK: Mild tenderness to right lumbar region, no midline tenderness. No obvious deformities, bony point tenderness, or crepitus noted throughout the thoracic and lumbar vertebrae. NEUROLOGICAL: Awake, alert, and oriented. Normal speech. Patient unable to ambulate due to weakness in lower extremities. Cranial nerves are grossly intact. Course Initial Documented Vital Signs Temperature 98 F 06/15/18 14:10 Pulse Rate 84 06/15/18 14:10 Respiratory Rate 16 06/15/18 14:10 Blood Pressure 132/81 06/15/18 14:10 Last Documented Vital Signs Temperature 98.0 F 06/15/18 17:28 Pulse Rate 84 06/15/18 18:00 Respiratory Rate 16 06/15/18 17:28 Blood Pressure 132/81 06/15/18 17:28 Pulse Oximetry 98 08/06/18 18:00 Medical Decision Making [facility] Narrative Medical decision making narrative: 82-year-old female presents to the emergency department for evaluation of weakness and inability to ambulate. Vital signs are stable. IV access is obtained, labs have been drawn and sent. EKG shows sinus rhythm with occasional PVCs, otherwise unremarkable. Imaging has been ordered of lumbar spine and pelvis to rule out acute fracture due to fall. Patient is administered 2 mg IV morphine for pain. Patient is reevaluated and still unable to ambulate. Urinalysis is suggestive of UTI and in presence of Murillo catheter patient will be given antibiotics. Reports sensitivities to multiple antibiotics specifically doxycycline and reports she was on a long course of Cipro in the past without good result. States that Keflex has worked well for her in the past therefore administered this as treatment. CT imaging of lumbar spine and pelvis is negative for any acute abnormality. Patient is unable to ambulate and is a significant fall risk. Therefore she will be admitted to observation for PT and pain control and likely placement to SNF. Discussed this with the patient who is in agreement. I spoke with Dr. Sprague who agrees to admit the patient to his service. Differential Diagnosis Differential Diagnosis: Lumbar radiculopathy versus muscle weakness versus chronic low back pain versus UTI Lab Data Result diagrams: 06/15/18 20:10 06/15/18 20:10 Lab Results 06/15/18 06/15/18 Range/Units 18:15 20:10 WBC 8.6 (4.0-11.0) th/mm3 RBC 3.95 L (4.00-5.30) mil/mm3 Hgb 12.2 (11.6-15.3) gm/dL Hct 34.2 L (35.0-46.0) % MCV 86.5 (80.0-100.0) fL MCH 30.8 (27.0-34.0) pg MCHC 35.6 (32.0-36.0) % RDW 12.5 (11.6-17.2) % Plt Count 336 (150-450) th/mm3 MPV 7.2 (7.0-11.0) fL Neut % (Auto) 79.2 H (16.0-70.0) % Lymph % (Auto) 9.8 (9.0-44.0) % Davidson % (Auto) 9.0 H (0.0-8.0) % Eos % (Auto) 1.4 (0.0-4.0) % Baso % (Auto) 0.6 (0.0-2.0) % Neut # (Auto) 6.8 (1.8-7.7) th/mm3 Lymph # (Auto) 0.8 L (1.0-4.8) th/mm3 Davidson # (Auto) 0.8 (0.0-0.9) th/mm3 Eos # (Auto) 0.1 (0.0-0.4) th/mm3 Baso # (Auto) 0.0 (0.0-0.2) th/mm3 WBC Differential . Differential Comment Auto diff final Urine Color Yellow (Yellw/Straw) Urine Clarity Cloudy H (Clear) Urine pH 7.0 (5.0-8.5) Ur Specific [place] 1.010 (1.002-1.035) Urine Protein Negative (Neg-Trace) mg/dL Urine Glucose (UA) Negative (Negative) mg/dL Urine Ketones Trace H (Negative) mg/dL Urine Occult Blood Small H (Negative) Urine Nitrate Negative (Negative) Urine Bilirubin Negative (Negative) Urine Urobilinogen Less than 2 (Less than 2) mg/dL Ur Leukocyte Esterase Trace H (Negative) Urine RBC 2 (0-3) /hpf Urine WBC 16 H (0-5) /hpf Amorphous Sediment Few H (None) /hpf Urine Bacteria Occasional H (None) /hpf Micro UA Comment Culture indicated Urine Culture Comments Culture indicated Imaging Data Radiologist's impression: Lumbar Spine CT 06/15/18 18:55 CONCLUSION: 1. No evidence of acute fracture seen. 2. Malalignment at multiple levels throughout the lumbar spine described above and prior internal fixation with transpedicular screws at L4 and L5. There are no prior lumbar imaging studies at this institution to evaluate whether the listhesis is new or old. Pelvis CT 06/15/18 18:55 CONCLUSION: 1. Diffuse osteopenia. No evidence of acute fracture. Discharge Plan Discharge Disposition Patient Disposition: 30 Still Patient Discharge Details Diagnosis: Weakness, Lumbar radiculopathy Physicians Team ED Provider: Cheryl Jarvis ED Midlevel Provider: Vianey Farfan Primary Care Provider: Terrence Azul Rxs /Orders / Referrals /Forms Prescriptions: No Action aspirin 81 mg Tablet,Chewable 81 mg PO DAILY RF: 0 calcium citrate 200 mg (950 mg) Tablet 500 mg PO DAILY RF: 0 duloxetine [Cymbalta] 20 mg Capsule,Delayed Release(Dr/Ec) 20 mg PO BID RF: 0 omeprazole 20 mg Tablet,Delayed Release (Dr/Ec) 20 mg PO DAILY RF: 0 fluticasone [Flovent HFA] 220 mcg/actuation Hfa Aerosol Inhaler 1 puff INHALATION BID RF: 0 Status ED Status: With Doctor
[2018-06-15 19:48] LABS: Amorphous Sediment,Urine Few /hpf; Bacteria,Urine Occasional /hpf; Bilirubin,Urine Negative (Negative); Clarity,Urine Cloudy (Clear); Color,Urine Yellow (Yellw/Straw); Glucose,Urine (UA) Negative (Negative); Leukocyte Esterase,Urine Trace (Negative); Nitrite,Urine Negative (Negative)
--- NOTE | 2018-06-15 19:51 | CT ---
EXAM DATE: 06/15/2018 7:35 PM EDT AGE/SEX: 82 years / Female INDICATIONS: Trauma. Fall 2 days ago. CLINICAL DATA: This is the patient's initial encounter. Patient reports that signs and symptoms have been present for 2 days and indicates a pain score of 8/10. MEDICAL/SURGICAL HISTORY: None. Fusion, lumbar. RADIATION DOSE: 26.07 CTDI (mGy) COMPARISON: No prior exams available for comparison. TECHNIQUE: Multiple contiguous axial images were obtained through the pelvis without contrast. Imag es were obtained using multiple row detector helical technique. . Using automated exposure control an d adjustment of the mA and/or kV according to patient size, radiation dose was kept as low as reasona chelsea achievable to obtain optimal diagnostic quality images. DICOM format image data is available kiara ctronically for review and comparison. FINDINGS: There is diffuse osteopenia. The bony pelvic ring is grossly intact. No fracture seen in the pelvis o r proximal hips. No radiopaque foreign bodies. Murillo catheter in the urinary bladder. No evidence of free fluid in the dependent pelvis. No dilated loops of bowel seen. CONCLUSION: 1. Diffuse osteopenia. No evidence of acute fracture. Electronically signed by: Bladimir Buchanan MD 06/15/2018 7:50 PM EDT
--- NOTE | 2018-06-15 19:58 | CT ---
EXAM DATE: 06/15/2018 7:41 PM EDT AGE/SEX: 82 years / Female INDICATIONS: Trauma, fall yesterday. CLINICAL DATA: This is the patient's initial encounter. Patient reports that signs and symptoms have been present for 1 day and indicates a pain score of 7/10. MEDICAL/SURGICAL HISTORY: None. Fusion, lumbar. RADIATION DOSE: 26.11 CTDI (mGy) COMPARISON: No prior exams available for comparison. TECHNIQUE: Contiguous axial images were acquired with a multirow detector CT scanner without contras t. Multiplanar reconstructions in the sagittal and coronal plane were also performed. Using automate d exposure control and adjustment of the mA and/or kV according to patient size, radiation dose was k ept as low as reasonably achievable to obtain optimal diagnostic quality images. DICOM format image data is available electronically for review and comparison. FINDINGS: Transpedicular screws are present bilaterally at L5 4 and L5. There is malalignment of vertebral bodi es of the lumbar spine with 4 mm retrolisthesis of L1 with respect to L2, 5 mm anterolisthesis of L3 with respect to L4, and 12 mm anterolisthesis of L4 with respect to L5. Vertebral body height is main tained. No compression deformities seen. No discrete fracture lines. Vacuum phenomenon is present in all of the interspaces except L4-5. Transverse processes are intact. At L1-2, broad-based bulging of the disc causes flattening ventral margin of thecal sac and extends i nto the neural foramen bilaterally. At L3-4, mild broad-based bulging of the disc without significant deformity of the thecal sac. At L3-4, the margins of the bony spinal canal are not well seen in the axial projection, but there is suggestion of bony spinal canal stenosis due to the anterolisthesis. The margins of the thecal sac but not well seen at L4-5 due to metallic streak artifact. CONCLUSION: 1. No evidence of acute fracture seen. 2. Malalignment at multiple levels throughout the lumbar spine described above and prior internal fi xation with transpedicular screws at L4 and L5. There are no prior lumbar imaging studies at this ins titution to evaluate whether the listhesis is new or old. Electronically signed by: Bladimir Buchanan MD 06/15/2018 7:57 PM EDT
[2018-06-15 20:22] LABS: Baso % (Auto) 0.6 % (0.0-2.0); Eos # (Auto) 0.1 th/mm3 (0.0-0.4); Eos % (Auto) 1.4 % (0.0-4.0); Hematocrit 34.2 % (35.0-46.0); Hemoglobin 12.2 gm/dL (11.6-15.3); Lymph # (Auto) 0.8 th/mm3 (1.0-4.8); Lymph % (Auto) 9.8 % (9.0-44.0); Mean Corpuscular HGB Conc 35.6 % (32.0-36.0); Mean Corpuscular Hemoglobin 30.8 pg (27.0-34.0); Mean Corpuscular Volume 86.5 fL (80.0-100.0); Mean Platelet Volume 7.2 fL (7.0-11.0); Mono # (Auto) 0.8 th/mm3 (0.0-0.9); Neut # (Auto) 6.8 th/mm3 (1.8-7.7); Neut % (Auto) 79.2 % (16.0-70.0); Platelet Count 336 th/mm3 (150-450); Red Blood Count 3.95 mil/mm3 (4.00-5.30); Red Cell Distribution Width 12.5 % (11.6-17.2); White Blood Count 8.6 th/mm3 (4.0-11.0)
[2018-06-15] MEDS ORDERED: Morphine Sulfate Inj 2 MG/ML Vial IV.PUSH ONE (20:23)
--- NOTE | 2018-06-15 22:00 | P.HPIM ---
History of Present Illness Service: This is an 82-year-old female patient with past medical history which includes hypertension, hyperlipidemia, hypothyroidism, GERD, Cantor's esophagitis and long-standing urinary frequency with incomplete bladder emptying. Patient follows with [facility] Dr. Barclay. And has had both indwelling Collins catheters as well as suprapubic catheter in the past. Patient has tried taking Toviaz, Vesicare and Myrbetriq in the past as well. Patient presented to the emergency department in March and admitted to our service for urine retention and hyponatemia. Pt seen by urology and sent home with indwelling collins for urine retention. Today pt presents here with son as she continues to do poorly at home and c/o worsening of chronic low back pains making it difficult for her to ambulate. Family needs to get her in/out of bed. Pt says she has been on multiple pain killers in past and following with pain specialist. She has only been using tyelonol most recently but she and son are asking for strong pain medication. CT imaging of lumbar spine and pelvis in ED not revealing of any acute process. Past Medical History hypertension, hyperlipidemia, hypothyroidism, GERD, Cantor's esophagitis and long-standing urinary frequency with incomplete bladder emptying Past Surgical History Suprapubic catheter placement, EGD/colonoscopy, back surgery, D&C, tonsillectomy and adenoidectomy, total knee replacement Reported Medications Aspirin Children's (Aspirin) 81 Mg Chew 81 Mg CHEW DAILY Losartan (Losartan Potassium) 100 Mg Tab 100 Mg PO DAILY Family History CVA, heart disease, diabetes mellitus and cancer unknown type Social History Patient is Denies EtOH use tobacco use or illicit drug use Primary Care Physician: Terrence Azul MD - Diagnosis (1) Weakness (2) Chronic low back pain (3) Hyponatremia (4) Hypokalemia (5) Urine retention Review of Systems back pain inability to ambulate PMFSH - History History Provided By: Patient - Medical History Medical History: Medical History (Last Updated 06/15/18 @ 17:36 by Alisha Paredes) Asthma HBP (high blood pressure) Hx of thyroid disease - Surgical History Surgical History: Surgical History (Last Updated 06/15/18 @ 17:31 by Alisha Paredes) History of knee replacement Hx of cataract surgery - Tobacco History Second Hand Smoke Exposure: No Smoking Status: Never smoker - Alcohol History How Often Do You Have a Drink Containing Alcohol: Never - Substance Use History Substance History: No History of Abuse - Travel History Recent Travel in the [place] Within the Last 8 Weeks: No Recent Travel Out of the Country Within the Last 8 Weeks: No - Immunization History Tetanus Immunization: >5 Years Hx Influenza Vaccine This Season: No Medications and Allergies Active Medications: Active Medications Sodium Chloride (Ns Flush) 2 ml IV.FLUSH PRN PRN PRN Reason: FLUSH AFTER USING IV ACCESS Last Admin: 06/15/18 18:15 Dose: 2 ml Allergies Allergy/AdvReac Type Severity Reaction Status Date / Time niacin Allergy Severe Hives Verified 06/15/18 18:49 rosuvastatin Allergy Intermediate Hives Verified 06/15/18 17:23 doxycycline AdvReac Intermediate vomiting Verified 06/15/18 17:23 lactose AdvReac Intermediate Diarrhea Verified 06/15/18 18:49 Kkbfqdz-Ahy-Iuj Reductase AdvReac Intermediate Cramping Verified 06/15/18 17:23 Inhibitor of the Muscles Home Medications Medication Instructions Recorded Confirmed Type aspirin 81 mg PO DAILY 06/15/18 06/15/18 History calcium citrate 500 mg PO DAILY 06/15/18 06/15/18 History duloxetine [Cymbalta] 20 mg PO DAILY 06/15/18 06/15/18 History omeprazole 20 mg PO DAILY 06/15/18 06/15/18 History Exam Vital signs: Vital Signs 06/15/18 14:10 06/15/18 17:28 06/15/18 18:00 Temperature 98 F 98.0 F Pulse Rate 84 84 84 Respiratory Rate 16 16 Blood Pressure 132/81 132/81 Pulse Oximetry 96 98 Intake & Output 06/15/18 06/15/18 06/16/18 06:59 18:59 06:59 Weight 67.132 kg heart regl lung cta abd s/nt. collins.urine yellow ext no edema Results - Labs CBC & Chem 7: 06/15/18 20:10 06/15/18 20:10 Labs: Short CBC 06/15/18 Range/Units 20:10 WBC 8.6 (4.0-11.0) th/mm3 Hgb 12.2 (11.6-15.3) gm/dL Hct 34.2 L (35.0-46.0) % Plt Count 336 (150-450) th/mm3 Urine 06/15/18 Range/Units 18:15 Urine Color Yellow (Yellw/Straw) Urine Clarity Cloudy H (Clear) Urine pH 7.0 (5.0-8.5) Ur Specific [place] 1.010 (1.002-1.035) Urine Protein Negative (Neg-Trace) mg/dL Urine Glucose (UA) Negative (Negative) mg/dL - Imaging Impressions Lumbar Spine CT 06/15/18 18:55 CONCLUSION: 1. No evidence of acute fracture seen. 2. Malalignment at multiple levels throughout the lumbar spine described above and prior internal fixation with transpedicular screws at L4 and L5. There are no prior lumbar imaging studies at this institution to evaluate whether the listhesis is new or old. Pelvis CT 06/15/18 18:55 CONCLUSION: 1. Diffuse osteopenia. No evidence of acute fracture. Caprini VTE Risk Assessment Caprini VTE Risk Assessment: Moderate/High Risk (score >= 2) Caprini Risk Assessment Model: Point Value = 1 Point Value = 2 Point Value = 3 Point Value = 5 Age 41-60 Minor surgery BMI > 25 kg/m2 Swollen legs Varicose veins or History of unexplained or recurrent spontaneous Oral contraceptives or hormone replacement Sepsis (< 1 month) Serious lung disease, including pneumonia (< 1 month) Abnormal pulmonary function Acute myocardial infarction Congestive heart failure (< 1 month) History of inflammatory bowel disease Medical patient at bed rest Age 61-74 Arthroscopic surgery Major open surgery (> 45 min) Laparoscopic surgery (> 45 min) Malignancy Confined to bed (> 72 hours) Immobilizing plaster cast Central venous access Age >= 75 History of VTE Family history of VTE Factor V Leiden Prothrombin [id number] Lupus anticoagulant Anticardiolipin antibodies Elevated serum homocysteine Heparin-induced thrombocytopenia Other congenital or acquired thrombophilia Stroke (< 1 month) Elective arthroplasty Hip, pelvis, or leg fracture Acute spinal cord injury (< 1 month) Prophylaxis Regimen: Total Risk Factor Score Risk Level Prophylaxis Regimen 0-1 Low Early ambulation 2 Moderate Order ONE of the following: *Sequential Compression Device (SCD) *Heparin 5000 units SQ BID 3-4 Higher Order ONE of the following medications: *Heparin 5000 units SQ TID *Enoxaparin/Lovenox 40 mg SQ daily (WT < 150 kg, CrCl > 30 mL/min) *Enoxaparin/Lovenox 30 mg SQ daily (WT < 150 kg, CrCl > 10-29 mL/min) *Enoxaparin/Lovenox 30 mg SQ BID (WT < 150 kg, CrCl > 30 mL/min) AND/OR *Sequential Compression Device (SCD) 5 or more Highest Order ONE of the following medications: *Heparin 5000 units SQ TID (Preferred with Epidurals) *Enoxaparin/Lovenox 40 mg SQ daily (WT < 150 kg, CrCl > 30 mL/min) *Enoxaparin/Lovenox 30 mg SQ daily (WT < 150 kg, CrCl > 10-29 mL/min) *Enoxaparin/Lovenox 30 mg SQ BID (WT < 150 kg, CrCl > 30 mL/min) AND *Sequential Compression Device (SCD) Assessment and Plan - Assessment (1) Weakness Code(s): R53.1 - Weakness Status: Acute Plan: 1. acute on chronic low back pain. inability to ambulate pt/son request snf placement consult CM for snf PT evaluation they want to try low dose of fentanyl patch. they understand she may have side effects and require cessation. they want to try. she is not interested in nsaids or ultram/norco/percocet type meds. dc to snf once arrangements made 2. chronic urine retention and collins. changed 1 week ago. ED gave abx. f/u cx. likely inflammatory cells from the collins. no fever 3. hyponatremia/hypokalemia. likely from poor intake. ns and kcl and recheck. doubt siadh from ssri. osmols pending. 4. depression. just started on ssri yesterday. (2) Chronic low back pain Code(s): M54.5 - Low back pain; G89.29 - Other chronic pain Status: Acute (3) Hyponatremia Code(s): E87.1 - Hypo-osmolality and hyponatremia Status: Acute (4) Hypokalemia Code(s): E87.6 - Hypokalemia Status: Acute (5) Urine retention Code(s): R33.9 - Retention of urine, unspecified Status: Acute
[2018-06-15 22:19] LABS: Alanine Aminotransferase 19 U/L (10-53); Albumin 3.3 g/dL (3.4-5.0); Alkaline Phosphatase 64 U/L (45-117); Anion Gap 12 meq/L (5-15); Aspartate Aminotransferase 22 U/L (15-37); Blood Urea Nitrogen 11 mg/dL (7-18); Carbon Dioxide 27.4 meq/L (21.0-32.0); Chloride 86 meq/L (98-107); Glomerular Filtration Rate Greater Than 89 mL/min (>89); Glucose,Random 111 mg/dL (74-106); Sodium 125 meq/L (136-145); Total Protein 6.9 g/dL (6.4-8.2)
[2018-06-15 22:21] LABS: Potassium 2.8 meq/L (3.5-5.1)
[2018-06-16] MEDS: Potassium Chloride Inj 10 MEQ in Sod Chloride 0.9% Inj 1,000 ML IV.CONT SCH ×2 (00:36→17:34)
[2018-06-16 08:06] LABS: Anion Gap 9 meq/L (5-15); Blood Urea Nitrogen 15 mg/dL (7-18); Calcium 8.8 mg/dL (8.5-10.1); Carbon Dioxide 28.2 meq/L (21.0-32.0); Chloride 88 meq/L (98-107); Glomerular Filtration Rate Greater Than 89 mL/min (>89); Glucose,Random 89 mg/dL (74-106); Potassium 3.6 meq/L (3.5-5.1); Sodium 125 meq/L (136-145)
--- NOTE | 2018-06-16 08:37 | P.PNIM ---
Subjective Interval history: Follow up: weakness, chronic urine retention with collins catheter, hyponatremia and hypokalemia Patient's main complaint today is fatigue she reports she did not sleep well in the hospital due to multiple interruptions feels that back pain is, "a little better, "with fentanyl patch Physical Exam Vital signs: Vital Signs 06/15/18 14:10 06/15/18 17:28 06/15/18 18:00 Temperature 98 F 98.0 F Pulse Rate 84 84 84 Respiratory Rate 16 16 Blood Pressure 132/81 132/81 Pulse Oximetry 96 98 06/16/18 00:00 06/16/18 04:00 06/16/18 07:24 Temperature 97.6 F 98.1 F 98.6 F Pulse Rate 72 74 75 Respiratory Rate 16 17 18 Blood Pressure 163/69 H 173/69 H 168/77 H Pulse Oximetry 93 L 94 L 97 Intake & Output 06/15/18 06/16/18 06/16/18 18:59 06:59 18:59 Weight 67.132 kg Other: Date of Last Bowel Movement 06/14/18 Narrative: GENERAL: This is an elderly 82 year old female, well-developed patient, in no apparent distress. CARDIOVASCULAR: Regular rate and rhythm RESPIRATORY: Clear to auscultation. Breath sounds equal bilaterally. GASTROINTESTINAL: Abdomen soft, non-tender, nondistended. Normal active bowel sounds MUSCULOSKELETAL: Extremities without clubbing, cyanosis, or edema. NEURO: Alert & Oriented. Moves all ext x4 Results - Labs CBC & Chem 7: 06/15/18 20:10 06/16/18 07:10 Laboratory Results - last 24 hr 06/15/18 06/15/18 06/15/18 18:15 18:15 20:10 WBC 8.6 RBC 3.95 L Hgb 12.2 Hct 34.2 L MCV 86.5 MCH 30.8 MCHC 35.6 RDW 12.5 Plt Count 336 MPV 7.2 Neut % (Auto) 79.2 H Lymph % (Auto) 9.8 [place] % (Auto) 9.0 H Eos % (Auto) 1.4 Baso % (Auto) 0.6 Neut # (Auto) 6.8 Lymph # (Auto) 0.8 L [place] # (Auto) 0.8 Eos # (Auto) 0.1 Baso # (Auto) 0.0 WBC Differential . Differential Comment Auto diff final Sodium Potassium Chloride Carbon Dioxide Anion Gap BUN Creatinine Estimated GFR Random Glucose Osmolality Calcium Total Bilirubin AST ALT Alkaline Phosphatase Total Protein Albumin Urine Color Yellow Urine Clarity Cloudy H Urine pH 7.0 Ur Specific [place] 1.010 Urine Protein Negative Urine Glucose (UA) Negative Urine Ketones Trace H Urine Occult Blood Small H Urine Nitrate Negative Urine Bilirubin Negative Urine Urobilinogen Less than 2 Ur Leukocyte Esterase Trace H Urine RBC 2 Urine WBC 16 H Amorphous Sediment Few H Urine Bacteria Occasional H Micro UA Comment Culture indicated Urine Culture Comments Culture indicated Urine Osmolality Ur Random Sodium 107 06/15/18 06/15/18 06/15/18 20:10 20:10 20:10 WBC RBC Hgb Hct MCV MCH MCHC RDW Plt Count MPV Neut % (Auto) Lymph % (Auto) [place] % (Auto) Eos % (Auto) Baso % (Auto) Neut # (Auto) Lymph # (Auto) [place] # (Auto) Eos # (Auto) Baso # (Auto) WBC Differential Differential Comment Sodium 125 L Potassium 2.8 L* Chloride 86 L Carbon Dioxide 27.4 Anion Gap 12 BUN 11 Creatinine 0.56 Estimated GFR Greater than 89 Random Glucose 111 H Osmolality 258 L Calcium 9.0 Total Bilirubin 0.7 AST 22 ALT 19 Alkaline Phosphatase 64 Total Protein 6.9 Albumin 3.3 L Urine Color Urine Clarity Urine pH Ur Specific [place] Urine Protein Urine Glucose (UA) Urine Ketones Urine Occult Blood Urine Nitrate Urine Bilirubin Urine Urobilinogen Ur Leukocyte Esterase Urine RBC Urine WBC Amorphous Sediment Urine Bacteria Micro UA Comment Urine Culture Comments Urine Osmolality 417 Ur Random Sodium 06/16/18 07:10 WBC RBC Hgb Hct MCV MCH MCHC RDW Plt Count MPV Neut % (Auto) Lymph % (Auto) [place] % (Auto) Eos % (Auto) Baso % (Auto) Neut # (Auto) Lymph # (Auto) [place] # (Auto) Eos # (Auto) Baso # (Auto) WBC Differential Differential Comment Sodium 125 L Potassium 3.6 D Chloride 88 L Carbon Dioxide 28.2 Anion Gap 9 BUN 15 Creatinine 0.52 Estimated GFR Greater than 89 Random Glucose 89 Osmolality Calcium 8.8 Total Bilirubin AST ALT Alkaline Phosphatase Total Protein Albumin Urine Color Urine Clarity Urine pH Ur Specific [place] Urine Protein Urine Glucose (UA) Urine Ketones Urine Occult Blood Urine Nitrate Urine Bilirubin Urine Urobilinogen Ur Leukocyte Esterase Urine RBC Urine WBC Amorphous Sediment Urine Bacteria Micro UA Comment Urine Culture Comments Urine Osmolality Ur Random Sodium - Imaging Impressions Lumbar Spine CT 06/15/18 18:55 CONCLUSION: 1. No evidence of acute fracture seen. 2. Malalignment at multiple levels throughout the lumbar spine described above and prior internal fixation with transpedicular screws at L4 and L5. There are no prior lumbar imaging studies at this institution to evaluate whether the listhesis is new or old. Pelvis CT 06/15/18 18:55 CONCLUSION: 1. Diffuse osteopenia. No evidence of acute fracture. Assessment and Plan - Assessment (1) Weakness Code(s): R53.1 - Weakness Status: Acute Plan: 1. acute on chronic low back pain. inability to ambulate pt/son request snf placement consult CM for snf PT evaluation they want to try low dose of fentanyl patch. they understand she may have side effects and require cessation. they want to try. she is not interested in nsaids or ultram/norco/percocet type meds. dc to snf once arrangements made 2. chronic urine retention and collins. changed 1 week ago. ED gave abx. f/u cx. likely inflammatory cells from the collins. no fever 3. hyponatremia/hypokalemia. likely from poor intake. repeat BMP reveals Na 125, K 3.6 doubt siadh from ssri. osmols pending. 4. depression. just started on ssri yesterday. The exam, history, and the medical decision-making described in the above note were completed with the assistance of the mid-level provider. I reviewed and agree with the findings presented. I attest that I had a [id number] encounter with the patient on the same day, and personally performed and documented my assessment and findings in the medical record. evaluated left elbow lac with plastics dr Brand.no sutures. wound care instruction await snf placement. (2) Chronic low back pain Code(s): M54.5 - Low back pain; G89.29 - Other chronic pain Status: Acute (3) Hyponatremia Code(s): E87.1 - Hypo-osmolality and hyponatremia Status: Acute (4) Hypokalemia Code(s): E87.6 - Hypokalemia Status: Acute (5) Urine retention Code(s): R33.9 - Retention of urine, unspecified Status: Acute
[2018-06-16] MEDS: Pantoprazole Sodium 20 MG DR Tablet PO SCH (10:07)
[2018-06-16] MEDS: Calcium Carbonate 500 MG Tablet PO SCH (10:07)
--- NOTE | 2018-06-16 17:32 | MB ---
cc: Sarah Brand MD DATE: 06/16/2018 REQUESTING PHYSICIAN: The patient is being seen at the request of Dr. Christiano Sprague. REASON FOR CONSULTATION: Open wound to the left elbow. HISTORY OF PRESENT ILLNESS: The patient is a 82-year-old female. 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 The patient apparently fell and came into the emergency room yesterday. She had sustained a laceration to her right elbow. Consultation was requested regarding evaluation and treatment of that wound. PAST MEDICAL HISTORY: The patient has a history of asthma, high blood pressure and thyroid disease. PAST SURGICAL HISTORY: She has a knee replacement and cataract surgery. SOCIAL HISTORY: The patient never smoked. REVIEW OF SYSTEMS: Otherwise negative, except as related to her admission. PHYSICAL EXAMINATION: VITAL SIGNS: Her temperature was 98.0, pulse 74, respirations 16, blood pressure is 162/70, pulse oximetry is 95% on room air. HEENT: Her extraocular muscles are intact. Her pupils are equal, round and reactive to light. Her mouth is clear. NECK: Supple without masses. LUNGS: Clear. HEART: Regular rate and rhythm. EXTREMITIES: Examination of the upper extremities reveals a laceration, approximately 7 mm in length, over the elbow. There is no redness, no drainage. There is some epidermis, which has from the dermis and folded upon itself. This is replaced back into its normal anatomic area. There is no redness. There is no discomfort. She has full range of motion. IMPRESSION: The patient has a laceration in the area of the elbow. PLAN: The area will be irrigated by the physician's elementary assistant teacher and covered with Silvadene to be changed every day. I anticipate that the area will close by secondary intention. The patient can follow up in my clinic once she was discharged. MD ANTWAN Veloz/NEETA , 05:09 PM , 05:18 PM
[2018-06-16] MEDS: Docusate Sodium 100 MG Capsule PO SCH ×2 (17:34→21:16)
--- NOTE | 2018-06-16 23:24 | ECG ---
Date Performed: 06/15/2018 Time Performed: 19:05:18 PTAGE: 82 years EKG: Sinus rhythm WITH OCCASIONAL VENTRICULAR PREMATURE COMPLEXES MINIMAL VOLTAGE CRITERIA FOR LVH, CONSIDER NORMAL VA RIANT POSSIBLE LATERAL MYOCARDIAL INFARCTION BORDERLINE ECG PREVIOUS TRACING : 06/15/2018 18.55 Since the previous tracing, no significant change noted DOCTOR: Leo Clemente Interpretating Date/Time 06/16/2018 23:24:22
[2018-06-17] MEDS: Potassium Chloride Inj 10 MEQ in Sod Chloride 0.9% Inj 1,000 ML IV.CONT SCH ×2 (04:32→23:18)
[2018-06-17 07:51] LABS: Baso % (Auto) 0.4 % (0.0-2.0); Eos # (Auto) 0.1 th/mm3 (0.0-0.4); Eos % (Auto) 0.7 % (0.0-4.0); Hematocrit 36.8 % (35.0-46.0); Hemoglobin 13.2 gm/dL (11.6-15.3); Lymph # (Auto) 0.7 th/mm3 (1.0-4.8); Lymph % (Auto) 6.9 % (9.0-44.0); Mean Corpuscular HGB Conc 35.8 % (32.0-36.0); Mean Corpuscular Hemoglobin 31.8 pg (27.0-34.0); Mean Corpuscular Volume 88.7 fL (80.0-100.0); Mean Platelet Volume 6.9 fL (7.0-11.0); Mono # (Auto) 0.8 th/mm3 (0.0-0.9); Mono % (Auto) 7.6 % (0.0-8.0); Neut % (Auto) 84.4 % (16.0-70.0); Platelet Count 340 th/mm3 (150-450); Red Blood Count 4.15 mil/mm3 (4.00-5.30); Red Cell Distribution Width 12.3 % (11.6-17.2); White Blood Count 10.7 th/mm3 (4.0-11.0)
[2018-06-17 08:30] LABS: Anion Gap 8 meq/L (5-15); Blood Urea Nitrogen 10 mg/dL (7-18); Calcium 8.9 mg/dL (8.5-10.1); Carbon Dioxide 25.8 meq/L (21.0-32.0); Chloride 92 meq/L (98-107); Glomerular Filtration Rate Greater Than 89 mL/min (>89); Glucose,Random 114 mg/dL (74-106); Potassium 4.4 meq/L (3.5-5.1); Sodium 126 meq/L (136-145)
[2018-06-17] MEDS: Calcium Carbonate 500 MG Tablet PO SCH (08:41)
[2018-06-17] MEDS: Docusate Sodium 100 MG Capsule PO SCH ×2 (08:41→21:48)
[2018-06-17] MEDS: Pantoprazole Sodium 20 MG DR Tablet PO SCH (08:42)
--- NOTE | 2018-06-17 09:21 | P.PNIM ---
Subjective Interval history: Pain is mildly better controlled today with Fentanyl patch She is passing gas and has had 2 BMs Pt is tolerating oral intake BP is more elevated this morning Physical Exam Vital signs: Vital Signs 06/16/18 12:00 06/16/18 16:00 06/16/18 20:00 Temperature 97.7 F 98.0 F 98.2 F Pulse Rate 78 74 79 Respiratory Rate 16 16 18 Blood Pressure 178/74 H 162/70 H 166/74 H Pulse Oximetry 96 95 96 06/17/18 00:00 06/17/18 04:00 06/17/18 08:00 Temperature 97.8 F 98.8 F 98.1 F Pulse Rate 73 78 86 Respiratory Rate 18 18 16 Blood Pressure 173/71 H 168/81 H 196/95 H Pulse Oximetry 96 95 98 Intake & Output 06/16/18 06/17/18 06/17/18 18:59 06:59 18:59 Intake Total 1005 / 1005 240 / 240 Output Total 1600 / 1600 Balance 1005 / 1005 -1360 / -1360 Intake: IV 1005 / 1005 KCl Inj 10 MEQ In NS Inj 1,000 1005 / 1005 ML @ 70 mls/hr IV.CONT .[id number] JUAN Rx#:[id number] Oral 240 / 240 Output: Urine Amount (Catheter) 1600 / 1600 Indwelling Urethral Catheter 1600 / 1600 Other: Date of Last Bowel Movement 06/14/18 Narrative: GENERAL: This is an elderly 82 year old female, well-developed patient, in no apparent distress. CARDIO: Regular, 4/6 DEYSI RESP: CTA bilaterally. ABD: +BS, soft, non-tender, nondistended. Normal active bowel sounds EXT: No LE edema, RLE weakness NEURO: Alert & Oriented. - Urinary Catheter Management Indwelling Urethral Catheter Cath placed during this visit: no Results - Labs CBC & Chem 7: 06/17/18 07:07 06/17/18 07:05 Laboratory Results - last 24 hr 06/17/18 06/17/18 07:05 07:07 WBC 10.7 RBC 4.15 Hgb 13.2 Hct 36.8 MCV 88.7 MCH 31.8 MCHC 35.8 RDW 12.3 Plt Count 340 MPV 6.9 L Neut % (Auto) 84.4 H Lymph % (Auto) 6.9 L [place] % (Auto) 7.6 Eos % (Auto) 0.7 Baso % (Auto) 0.4 Neut # (Auto) 9.0 H Lymph # (Auto) 0.7 L [place] # (Auto) 0.8 Eos # (Auto) 0.1 Baso # (Auto) 0.0 WBC Differential . Differential Comment Auto diff final Sodium 126 L Potassium 4.4 D Chloride 92 L Carbon Dioxide 25.8 Anion Gap 8 BUN 10 Creatinine 0.51 Estimated GFR Greater than 89 Random Glucose 114 H Calcium 8.9 Microbiology 06/15/18 18:15 Clean Catch Urine Urine Culture - Final >100,000 cfu/mL mixed chris (probable contaminants) - Imaging Lumbar Spine CT 06/15/18 18:55 CONCLUSION: 1. No evidence of acute fracture seen. 2. Malalignment at multiple levels throughout the lumbar spine described above and prior internal fixation with transpedicular screws at L4 and L5. There are no prior lumbar imaging studies at this institution to evaluate whether the listhesis is new or old. Pelvis CT 06/15/18 18:55 CONCLUSION: 1. Diffuse osteopenia. No evidence of acute fracture. Assessment and Plan - Assessment (1) Weakness Code(s): R53.1 - Weakness Status: Acute Plan: Acute on chronic low back pain Inability to ambulate - Pt is an 82 y/o female with hypertension, hyperlipidemia, hypothyroidism, GERD , Cantor's esophagitis and long-standing urinary frequency with incomplete bladder emptying - Pt presented to the ED at [facility] on 06/15/18 with her son as she continues to do poorly at home and c/o worsening of chronic low back pains making it difficult for her to ambulate. Family needs to get her in/out of bed. - Pt/son request SNF placement - PT recommending rehab - Pt was started on low dose of fentanyl patch. Pt and family understand she may have side effects and require cessation. - She is not interested in nsaids or ultram/norco/percocet type meds. - Constipation precautions. - Pt to SNF once arrangements made Chronic urine retention and [place], changed 1 week ago. - ED gave abx. - Urine cx with probable contaminants - No fever Hyponatremia/hypokalemia, likely from poor intake. - Repeat BMP on 06/17 reveals Na 126, K 4.4 - workup negative for SIADH - Encourage oral intake - Pt had been on HCTZ for BP control prior to admission and this was held at admission. Depression. - Pt just started on SSRI prior to admission. Left elbow laceration - Pt was seen by plastics dr Brand, no sutures recommended - Wound care instruction per Plastics HTN - Cozaar 100mg po daily continued - Clonidine PRN - BP likely elevated due to pain and anxiety - She was also on HCTZ prior to admission. The exam, history, and the medical decision-making described in the above note were completed with the assistance of the mid-level provider. I reviewed and agree with the findings presented. I attest that I had a [id number] encounter with the patient on the same day, and personally performed and documented my assessment and findings in the medical record. dc to snf tomorrow. adjust bp meds. stop diuretics. (2) Chronic low back pain Code(s): M54.5 - Low back pain; G89.29 - Other chronic pain Status: Acute (3) Hyponatremia Code(s): E87.1 - Hypo-osmolality and hyponatremia Status: Acute (4) Hypokalemia Code(s): E87.6 - Hypokalemia Status: Acute (5) Urine retention Code(s): R33.9 - Retention of urine, unspecified Status: Acute
[2018-06-18] MEDS ORDERED: Acetaminophen 325 MG Tablet PO PRN (05:59)
[2018-06-18] MEDS: Pantoprazole Sodium 20 MG DR Tablet PO SCH (08:31)
[2018-06-18] MEDS: Docusate Sodium 100 MG Capsule PO SCH (08:31)
[2018-06-18] MEDS: Calcium Carbonate 500 MG Tablet PO SCH (08:31)
[2018-06-18] MEDS: Potassium Chloride Inj 10 MEQ in Sod Chloride 0.9% Inj 1,000 ML IV.CONT SCH (08:32)
[2018-06-18 08:34] LABS: Anion Gap 9 meq/L (5-15); Blood Urea Nitrogen 13 mg/dL (7-18); Calcium 8.7 mg/dL (8.5-10.1); Chloride 94 meq/L (98-107); Glomerular Filtration Rate Greater Than 89 mL/min (>89); Glucose,Random 100 mg/dL (74-106); Potassium 3.6 meq/L (3.5-5.1); Sodium 127 meq/L (136-145)
--- NOTE | 2018-06-18 08:47 | P.PNIM ---
Subjective Interval history: Pts BP is much improved but almost too low this morning with last reading with BP of 109/55 She complained about nursing staff nor repositioning her during the night and she was having increased back pain this morning. Physical Exam Vital signs: Vital Signs 06/17/18 10:27 06/17/18 12:00 06/17/18 16:00 Temperature 97.7 F 98.5 F Pulse Rate 96 H 78 83 Respiratory Rate 16 14 Blood Pressure 154/75 H 189/84 H 154/71 H Pulse Oximetry 97 98 06/17/18 20:00 06/17/18 22:38 06/18/18 04:00 Temperature 98.2 F 97.7 F 97.6 F Pulse Rate 92 H 74 82 Respiratory Rate 17 17 17 Blood Pressure 133/69 114/56 L 133/60 Pulse Oximetry 98 96 95 06/18/18 07:17 Temperature 97.7 F Pulse Rate 81 Respiratory Rate 14 Blood Pressure 109/55 L Pulse Oximetry 97 Intake & Output 06/17/18 06/18/18 06/18/18 18:59 06:59 18:59 Intake Total 1005 / 1005 1005 / 1005 Balance 1005 / 1005 1005 / 1005 Intake: IV 1005 / 1005 1005 / 1005 KCl Inj 10 MEQ In NS Inj 1,000 1005 / 1005 1005 / 1005 ML @ 70 mls/hr IV.CONT .[id number] [facility] Rx#:[id number] Other: Date of Last Bowel Movement 06/17/18 # Bowel Movements 1 Narrative: GENERAL: This is an elderly 82 year old female, well-developed patient, in no apparent distress. CARDIO: Regular, 4/6 DEYSI RESP: CTA bilaterally. ABD: +BS, soft, non-tender, nondistended. Normal active bowel sounds EXT: No LE edema, RLE weakness NEURO: Alert & Oriented. - Urinary Catheter Management Indwelling Urethral Catheter Cath placed during this visit: no Results - Labs CBC & Chem 7: 06/17/18 07:07 06/18/18 06:20 Laboratory Results - last 24 hr 06/18/18 06:20 Sodium 127 L Potassium 3.6 D Chloride 94 L Carbon Dioxide 24.0 Anion Gap 9 BUN 13 Creatinine 0.48 L Estimated GFR Greater than 89 Random Glucose 100 Calcium 8.7 Microbiology 06/15/18 18:15 Clean Catch Urine Urine Culture - Final >100,000 cfu/mL mixed chris (probable contaminants) - Imaging Lumbar Spine CT 06/15/18 18:55 CONCLUSION: 1. No evidence of acute fracture seen. 2. Malalignment at multiple levels throughout the lumbar spine described above and prior internal fixation with transpedicular screws at L4 and L5. There are no prior lumbar imaging studies at this institution to evaluate whether the listhesis is new or old. Pelvis CT 06/15/18 18:55 CONCLUSION: 1. Diffuse osteopenia. No evidence of acute fracture. Assessment and Plan - Assessment (1) Weakness Code(s): R53.1 - Weakness Status: Acute Plan: Acute on chronic low back pain Inability to ambulate - Pt is an 82 y/o female with hypertension, hyperlipidemia, hypothyroidism, GERD , Cantor's esophagitis and long-standing urinary frequency with incomplete bladder emptying - Pt presented to the ED at [facility] [place] [facility] on 06/15/18 with her son as she continues to do poorly at home and c/o worsening of chronic low back pains making it difficult for her to ambulate. Family needs to get her in/out of bed. - Pt/son request SNF placement - PT recommending rehab - Pt was started on low dose of fentanyl patch. Pt and family understand she may have side effects and require cessation. - She is not interested in nsaids or ultram/norco/percocet type meds. - Constipation precautions. - Pt to SNF once arrangements made Chronic urine retention and Murillo, changed 1 week ago. - ED gave abx. - Urine cx with probable contaminants - No fever Hyponatremia/hypokalemia, likely from poor intake. - Repeat BMP on 06/18 reveals Na 127, K 3.6 - workup negative for SIADH - Encourage oral intake - Pt had been on HCTZ for BP control prior to admission and this was held at admission. Depression. - Pt just started on SSRI prior to admission. Left elbow laceration - Pt was seen by plastics dr Brand, no sutures recommended - Wound care instruction per Plastics HTN - Cozaar 100mg po daily continued - Clonidine PRN - BP likely elevated due to pain and anxiety - She was also on HCTZ prior to admission but due to electrolyte abnormalities this was not restarted - Pt was started on Procardia XL 30mg BID but BP rather low this morning, hold procardia for systolic BP less than 120 (2) Chronic low back pain Code(s): M54.5 - Low back pain; G89.29 - Other chronic pain Status: Acute (3) Hyponatremia Code(s): E87.1 - Hypo-osmolality and hyponatremia Status: Acute (4) Hypokalemia Code(s): E87.6 - Hypokalemia Status: Acute (5) Urine retention Code(s): R33.9 - Retention of urine, unspecified Status: Acute
[2018-06-18 11:29] VITALS: RESP 16
--- NOTE | 2018-06-18 14:59 | P.DS ---
<Viki Johnson E - Last Filed: 06/18/18 14:51> Date of admission: 06/15/18 22:00 Primary care physician: Terrence Azul MD Attending physician on discharge: Christiano Sprague Anticipated date of discharge: 06/18/18 Brief History from admission: This is an 82-year-old female patient with past medical history which includes hypertension, hyperlipidemia, hypothyroidism, GERD, Cantor's esophagitis and long-standing urinary frequency with incomplete bladder emptying. Patient follows with [facility] Dr. Barclay. And has had both indwelling Collins catheters as well as suprapubic catheter in the past. Patient has tried taking Toviaz, Vesicare and Myrbetriq in the past as well. Patient presented to the emergency department in March and admitted to our service for urine retention and hyponatremia. Pt seen by urology and sent home with indwelling collins for urine retention. Today pt presents here with son as she continues to do poorly at home and c/o worsening of chronic low back pains making it difficult for her to ambulate. Family needs to get her in/out of bed. Pt says she has been on multiple pain killers in past and following with pain specialist. She has only been using Tylenol most recently but she and son are asking for strong pain medication. CT imaging of lumbar spine and pelvis in ED not revealing of any acute process. Past Medical History hypertension, hyperlipidemia, hypothyroidism, GERD, Cantor's esophagitis and long-standing urinary frequency with incomplete bladder emptying Past Surgical History Suprapubic catheter placement, EGD/colonoscopy, back surgery, D&C, tonsillectomy and adenoidectomy, total knee replacement Reported Medications Aspirin Children's (Aspirin) 81 Mg Chew 81 Mg CHEW DAILY Losartan (Losartan Potassium) 100 Mg Tab 100 Mg PO DAILY Family History CVA, heart disease, diabetes mellitus and cancer unknown type Social History Patient is Denies EtOH use tobacco use or illicit drug use DS: Diagnosis - Discharge Diagnosis (1) Weakness Status: Acute (2) Chronic low back pain Status: Acute (3) Hyponatremia Status: Acute (4) Hypokalemia Status: Acute (5) Urine retention Status: Acute DS: Medications - Discharge Medications Prescriptions: fentanyl [Duragesic] 1 patch TRANSDERMAL Q3D #2 ea sodium chloride 1 tab PO BID 3 Days #6 tab DS: Summary Hospital Course: Acute on chronic low back pain Inability to ambulate - Pt is an 82 y/o female with hypertension, hyperlipidemia, hypothyroidism, GERD , Cantor's esophagitis and long-standing urinary frequency with incomplete bladder emptying. Pt presented to the ED at [facility] on 06/15/18 with her son as she continues to do poorly at home and c/o worsening of chronic low back pains making it difficult for her to ambulate. Family needs to get her in/out of bed. Pt/son request SNF placement. PT recommending rehab. Pt was started on low dose of fentanyl patch. Pt and family understand she may have side effects and require cessation. She is not interested in nsaids or ultram/norco/percocet type meds. Constipation precautions. Pt to SNF once arrangements made. Chronic urine retention and Collins, changed 1 week ago. - ED gave abx. Urine cx with probable contaminants. No fever Hyponatremia/hypokalemia, likely from poor intake. - Repeat BMP on 06/18 reveals Na 127, K 3.6. Workup negative for SIADH. Encourage oral intake. Pt had been on HCTZ for BP control prior to admission and this was held at admission. We will give a 3 days of NaCL 1gram BID and repeat labs at rehab on Mondays. Depression. - Pt just started on SSRI prior to admission. Left elbow laceration - Pt was seen by plastics dr Brand, no sutures recommended. Wound care instruction: Cleanse wound left elbow with sailne then apply silvadene and dressing HTN - Cozaar 100mg po daily continued. Clonidine PRN. BP likely elevated due to pain and anxiety. She was also on HCTZ prior to admission but due to electrolyte abnormalities this was not restarted. Pt was started on Procardia XL 30mg BID but BP rather low this morning, change Procardia to 30mg once daily and hold for systolic BP less than 120. Pt will need to followup with Dr. Azul 1 week after discharge from SNF - Time Spent with Patient Total time spent providing and/or coordinating discharge services: - Quality: VTE Deep Vein Thrombosis/Pulmonary Embolism Present on Admission: No Exam Vital signs: Vital Signs 06/17/18 16:00 06/17/18 20:00 06/17/18 22:38 Temperature 98.5 F 98.2 F 97.7 F Pulse Rate 83 92 H 74 Respiratory Rate 14 17 17 Blood Pressure 154/71 H 133/69 114/56 L Pulse Oximetry 98 98 96 06/18/18 04:00 06/18/18 07:17 06/18/18 11:29 Temperature 97.6 F 97.7 F 97.9 F Pulse Rate 82 81 76 Respiratory Rate 17 14 16 Blood Pressure 133/60 109/55 L 123/58 L Pulse Oximetry 95 97 98 Intake & Output 06/17/18 06/18/18 06/18/18 18:59 06:59 18:59 Intake Total 1005 / 1005 1505 / 1505 Balance 1005 / 1005 1505 / 1505 Intake: IV 1005 / 1005 1005 / 1005 KCl Inj 10 MEQ In NS Inj 1,000 1005 / 1005 1005 / 1005 ML @ 70 mls/hr IV.CONT .[id number] [facility] Rx#:[id number] Oral 500 / 500 Other: Date of Last Bowel Movement 06/17/18 # Bowel Movements 1 Results Labs on day of discharge: Labs from last 24 hours 06/18/18 06:20 Sodium 127 L Potassium 3.6 D Chloride 94 L Carbon Dioxide 24.0 Anion Gap 9 BUN 13 Creatinine 0.48 L Estimated GFR Greater than 89 Random Glucose 100 Calcium 8.7 - Impressions ITS Impressions Lumbar Spine CT 06/15/18 18:55 CONCLUSION: 1. No evidence of acute fracture seen. 2. Malalignment at multiple levels throughout the lumbar spine described above and prior internal fixation with transpedicular screws at L4 and L5. There are no prior lumbar imaging studies at this institution to evaluate whether the listhesis is new or old. Pelvis CT 06/15/18 18:55 CONCLUSION: 1. Diffuse osteopenia. No evidence of acute fracture. <Christiano Sprague L - Last Filed: 06/18/18 20:34> Date of admission: 06/15/18 22:00 Primary care physician: Terrence Azul MD DS: Diagnosis - Discharge Diagnosis (1) Weakness Status: Acute (2) Chronic low back pain Status: Acute (3) Hyponatremia Status: Acute (4) Hypokalemia Status: Acute (5) Urine retention Status: Acute DS: Summary - Time Spent with Patient Total time spent providing and/or coordinating discharge services: Greater than 30 minutes Exam Vital signs: Vital Signs 06/17/18 22:38 06/18/18 04:00 06/18/18 07:17 Temperature 97.7 F 97.6 F 97.7 F Pulse Rate 74 82 81 Respiratory Rate 17 17 14 Blood Pressure 114/56 L 133/60 109/55 L Pulse Oximetry 96 95 97 06/18/18 11:29 06/18/18 15:26 Temperature 97.9 F 98.1 F Pulse Rate 76 77 Respiratory Rate 16 16 Blood Pressure 123/58 L 125/58 L Pulse Oximetry 98 97 Intake & Output 06/18/18 06/18/18 06/19/18 06:59 18:59 06:59 Intake Total 1505 / 1505 Balance 1505 / 1505 Intake: IV 1005 / 1005 KCl Inj 10 MEQ In NS Inj 1,000 1005 / 1005 ML @ 70 mls/hr IV.CONT .[id number] [facility] Rx#:[id number] Oral 500 / 500 Other: Date of Last Bowel Movement 06/17/18 # Bowel Movements 1 Results Procedures completed during hospitalization: NONE Labs on day of discharge: Labs from last 24 hours 06/18/18 06:20 Sodium 127 L Potassium 3.6 D Chloride 94 L Carbon Dioxide 24.0 Anion Gap 9 BUN 13 Creatinine 0.48 L Estimated GFR Greater than 89 Random Glucose 100 Calcium 8.7 - Impressions ITS Impressions Lumbar Spine CT 06/15/18 18:55 CONCLUSION: 1. No evidence of acute fracture seen. 2. Malalignment at multiple levels throughout the lumbar spine described above and prior internal fixation with transpedicular screws at L4 and L5. There are no prior lumbar imaging studies at this institution to evaluate whether the listhesis is new or old. Pelvis CT 06/15/18 18:55 CONCLUSION: 1. Diffuse osteopenia. No evidence of acute fracture. Discharge Plan - Discharge Order Discharge Orders: Discharge Order (Routine); Ordered 06/18/18 Ordered By: Viki Johnson - Discharge Details Anticipated Discharge Date: 06/18/18 - Physicians Team Primary Care Provider: Terrence Azul Attending Provider: Christiano Sprague Other Providers: [facility],Agency ; Sarah Brand MD ; [facility],[place]
[2018-06-18 15:32] VITALS: BP 125/58; PULSE 77; TEMP 98.1; O2SAT 97
== END 2018-06-18 18:11 ==
LOC: NEPHCDU 14:04 → NEDA 14:04 → NEPC 14:04 → NEPHCDU 23:57
PROVIDERS: ADMIT Hospitalist; ATTEND Hospitalist

== ENCOUNTER 2018-09-21 09:41 | Inpatient (IN) ==
[2018-09-21] MEDS ORDERED: HYDROmorphone PF Inj 2 MG/ML Vial IV.PUSH ONE ×2 (10:05→13:55)
--- NOTE | 2018-09-21 11:38 | US ---
EXAM DATE: 09/21/2018 11:26 AM EST AGE/SEX: 83 years / Female INDICATIONS: Bilateral leg pain. CLINICAL DATA: This is the patient's initial encounter. Patient reports that signs and symptoms have been present for 1 day and indicates a pain score of 0/10. MEDICAL/SURGICAL HISTORY: . Asthma. HTN. Thyroid disease. . Knee replacement. Cataract. COMPARISON: No prior exams available for comparison. TECHNIQUE: Venous ultrasound of both lower extremities was performed from the inguinal ligament to t he proximal calf. Real-time, color Doppler and spectral tracing, compression and augmentation techni ques were used. FINDINGS: Right Leg: Normal compression of the deep venous system from the inguinal region to the proximal vidya f. No echogenic clot is seen. Normal response of the venous system to augmentation and respiration. Left Leg: Normal compression of the deep venous system from the inguinal region to the proximal calf . No echogenic clot is seen. Normal response of the venous system to augmentation and respiration. Other: None. CONCLUSION: 1. Negative for deep venous thrombosis Electronically signed by: Agustín Juarez MD 09/21/2018 11:37 AM EST
--- NOTE | 2018-09-21 11:46 | XR ---
EXAM DATE: 09/21/2018 11:42 AM EST AGE/SEX: 83 years / Female INDICATIONS: Right hip pain. No known injury. CLINICAL DATA: This is the patient's initial encounter. Patient reports that signs and symptoms have been present for 2 days and indicates a pain score of 8/10. MEDICAL/SURGICAL HISTORY: . Asthma. HTN. Thyroid disease. . Knee replacement. Cataract. Lumba r fusion. COMPARISON: No prior exams available for comparison. FINDINGS: Bony structures are intact and in normal alignment. Joints are intact without dislocation or signifi cant arthropathy. Osseous density is normal. Moderate vascular calcifications are noted. Soft tissu es are unremarkable. No radiopaque foreign bodies seen. CONCLUSION: Negative. I do not see etiology for the right hip pain. Electronically signed by: Agustín Juarez MD 09/21/2018 11:44 AM EST
[2018-09-21] MEDS ORDERED: levoFLOXacin 500 MG Tablet PO ONE (13:55)
--- NOTE | 2018-09-21 14:32 | ED ---
HPI General Chief complaint: Pain: Chronic Stated complaint: R Hip Pain Time Seen by Provider: 09/21/18 09:58 History of Present Illness HPI narrative: This is a 83-year-old female with history of chronic back pain, arthritis, urinary retention, UTI, hyponatremia, hypokalemia, who presents today with severe right-sided hip pain. Patient states she has hip pain in her right hip from arthritis. She reports today the hip pain is so severe that she cannot get out of bed. She states she is unable to move secondary to the pain. She reports that she recently about 6 weeks ago had x-rays of her right hip because she thought she had broken it. She denies any trauma. She states the x -rays at that time were negative. The patient has an indwelling Murillo catheter for urinary retention and a UTI. She is currently being treated with Levaquin for that. She also complains of lower extremity edema. She states her right lower extremity is worse than her left however they are both swollen. She does report that she has been less mobile over the last several days to week. Related Data Home Medications Medication Instructions Recorded Confirmed aspirin 81 mg PO DAILY 06/15/18 09/21/18 calcium citrate 500 mg PO DAILY 06/15/18 09/21/18 duloxetine [Cymbalta] 20 mg PO DAILY 06/15/18 09/21/18 omeprazole 20 mg PO DAILY 06/15/18 09/21/18 losartan 50 mg PO DAILY 06/17/18 09/21/18 levofloxacin [Levaquin] 500 mg PO DAILY 09/21/18 09/21/18 Previous Rx's Medication Instructions Recorded fentanyl [Duragesic] 1 patch TRANSDERMAL Q3D #2 ea 06/18/18 nifedipine 30 mg PO DAILY tab 06/18/18 Allergies Allergy/AdvReac Type Severity Reaction Status Date / Time niacin Allergy Severe Hives Verified 06/15/18 18:49 rosuvastatin Allergy Intermediate Hives Verified 06/15/18 17:23 doxycycline AdvReac Intermediate vomiting Verified 06/15/18 17:23 lactose AdvReac Intermediate Diarrhea Verified 06/15/18 18:49 Iufrapd-Ooy-Nxc Reductase AdvReac Intermediate Cramping Verified 06/15/18 17:23 Inhibitor of the Muscles nitrofurantoin AdvReac Nausea/Vomi Verified 09/21/18 09:57 [From Macrobid] ting Review of Systems ROS: all other systems reviewed are negative Eyes Reports system reviewed and no additional complaints, except as docu ENT Reports system reviewed and no additional complaints, except as docu Cardiovascular Denies chest pain, Denies diaphoresis and Denies dyspnea Respiratory Denies chest congestion and Denies cough Gastrointestinal Denies abdominal pain, Denies nausea and Denies vomiting Genitourinary Reports other (Indwelling catheter for urinary retention. Patient also is being treated for UTI with Levaquin.) Musculoskeletal Reports back pain (Chronic), Reports arthralgias and Reports other (Severe right hip pain. Patient reports right knee pain. Patient also reports swelling to her bilateral lower extremities worse on the right than on) Neurologic Denies headache(s), Denies focal weakness and Denies sensory deficit PMFSH Social History Social History Substance History: No History of Abuse Second Hand Smoke Exposure: No Smoking Status: Unknown if ever smoked Tobacco Type: Cigarettes How Often Do You Have a Drink Containing Alcohol: Never Recent Travel in [facility] within the Last 8 Weeks: No Recent Out of Country Travel within the Last 8 Weeks: No Immunization History Tetanus Immunization: <5 Years Exam Narrative Exam Narrative: GENERAL: Well-developed well-nourished female complaining of pain in her right hip area. SKIN: Focused skin assessment warm/dry. HEAD: Atraumatic. Normocephalic. EYES: Pupils equal and round. No scleral icterus. No injection or drainage. ENT: No nasal bleeding or discharge. Mucous membranes pink and moist. NECK: Trachea midline. Supple. CARDIOVASCULAR: Regular rate and rhythm. No murmur appreciated. RESPIRATORY: No accessory muscle use. Clear to auscultation. Breath sounds equal bilaterally. GASTROINTESTINAL: Abdomen soft, non-tender, nondistended. MUSCULOSKELETAL: No obvious deformities. No clubbing. No cyanosis. No edema. Patient has subjective tenderness in her right hip when she tries to flex her knee. There is no shortening noted. She does have pretibial edema to her bilateral lower extremities. Slightly worse on the right lower extremity than on the left. NEUROLOGICAL: Awake and alert. No obvious cranial nerve deficits. Motor grossly within normal limits. Normal speech. Course Initial Documented Vital Signs Temperature 98.2 F 09/21/18 09:53 Pulse Rate 98 H 09/21/18 09:53 Respiratory Rate 16 09/21/18 09:53 Blood Pressure 196/84 H 09/21/18 09:53 Pulse Oximetry 97 09/21/18 09:53 Last Documented Vital Signs Temperature 98.2 F 09/21/18 09:53 Pulse Rate 98 H 09/21/18 09:53 Respiratory Rate 15 09/21/18 11:00 Blood Pressure 196/84 H 09/21/18 09:53 Pulse Oximetry 97 09/21/18 09:53 Medical Decision Making MDM Narrative Medical decision making narrative: 83-year-old female presents with severe right hip pain. Patient states she cannot even move in bed without severe pain. X-ray showed no obvious fracture. She does have degenerative arthritis. She is received her second dose of IV pain medication. I discussed with both her and the son what their expectation was at this point. He was concerned that she is going back to [facility] with continued pain. He was hoping that she could be seen by an orthopedic surgeon and see if there is anything that they could offer at this point despite surgery not being an option. I discussed the case with Dr. Jorge Davila, [facility], who is gracious enough to bring her in under observation. Will be an orthopedic consult. She has been given her Levaquin that she is scheduled for. She also be continued on her Duragesic patch. Medical Screen Exam Complete: Yes Emergency Medical Condition: Yes Differential Diagnosis Differential Diagnosis: Occult fracture versus severe arthritis versus DVT Imaging Data Radiologist's impression: Hip X-Ray 09/21/18 09:58 CONCLUSION: Negative. I do not see etiology for the right hip pain. Venous Doppler Study 09/21/18 10:02 CONCLUSION: 1. Negative for deep venous thrombosis Discharge Plan Discharge Disposition Patient Disposition: 30 Still Patient Discharge Details Diagnosis: Joint pain of right hip on movement, Urinary retention, Intractable pain, UTI ( urinary tract infection), Chronic back pain Physicians Team ED Provider: Kobi Guzmán Primary Care Provider: Terrence Azul Rxs /Orders / Referrals /Forms Prescriptions: No Action aspirin 81 mg Tablet,Chewable 81 mg PO DAILY RF: 0 calcium citrate 200 mg (950 mg) Tablet 500 mg PO DAILY RF: 0 duloxetine [Cymbalta] 20 mg Capsule,Delayed Release(Dr/Ec) 20 mg PO DAILY RF: 0 omeprazole 20 mg Tablet,Delayed Release (Dr/Ec) 20 mg PO DAILY RF: 0 losartan 100 mg Tablet 50 mg PO DAILY RF: 0 nifedipine 30 mg Tablet Extended Release 24hr 30 mg PO DAILY RF: 0 fentanyl [Duragesic] 25 mcg/hr Patch 72 Hour 1 patch Transdermal Q3D Qty: 2 RF: 0 levofloxacin [Levaquin] 500 mg Tablet 500 mg PO DAILY RF: 0 Status ED Status: With Doctor
[2018-09-21] MEDS ORDERED: Acetaminophen 325 MG Tablet PO PRN ×2 (14:34→14:54)
--- NOTE | 2018-09-21 14:58 | XR ---
EXAM DATE: 09/21/2018 2:51 PM EST AGE/SEX: 83 years / Female INDICATIONS: Cough. CLINICAL DATA: This is the patient's initial encounter. Patient reports that signs and symptoms have been present for 1 day and indicates a pain score of 4/10. MEDICAL/SURGICAL HISTORY: . Asthma. HTN. Thyroid disease. . Knee replacement. Cataract. Lumbar fusion COMPARISON: [facility] [place], CHEST SINGLE AP, 04/05/2018. . FINDINGS: A single AP view of the chest demonstrates the lungs to be symmetrically aerated without evidence of mass, infiltrate or effusion. The cardiomediastinal contours are unremarkable. Osseous structures a re intact. CONCLUSION: No acute disease Electronically signed by: Miky Pillai MD 09/21/2018 2:56 PM EST
--- NOTE | 2018-09-21 15:23 | P.HPIM ---
History of Present Illness Primary Care Physician: Terrence Azul MD Chief Complaint: acute on chronic right hip pain History of Present Illness: This is an 83-year-old female patient with past medical history which includes hypertension, hyperlipidemia, hypothyroidism, GERD, Cantor's esophagitis and long-standing urinary frequency with incomplete bladder emptying. Patient presents to the ER due to worsening right hip pain. Patient states she has hip pain in her right hip from arthritis. She reports today the hip pain is so severe that she cannot get out of bed. Patient's daughter at bedside reports that patient has increase BLE edema. The edema and hip pain have been limiting patient's ability to ambulate. She reports that she recently about 6 weeks ago had x-rays of her right hip because she thought she had broken it. She denies any trauma. She states the x-rays at that time were negative. The patient has an indwelling Murillo catheter for urinary retention and a UTI. She is currently being treated with Levaquin for that. She also complains of lower extremity edema. She states her right lower extremity is worse than her left however they are both swollen. She does report that she has been less mobile over the last several days to week. Past Medical History hypertension, hyperlipidemia, hypothyroidism, GERD, Cantor's esophagitis and long-standing urinary frequency with incomplete bladder emptying Past Surgical History Suprapubic catheter placement, EGD/colonoscopy, back surgery, D&C, tonsillectomy and adenoidectomy, total knee replacement Family History CVA, heart disease, diabetes mellitus and cancer unknown type Social History Patient is Denies EtOH use tobacco use or illicit drug use Medications and Allergies Allergies Allergy/AdvReac Type Severity Reaction Status Date / Time niacin Allergy Severe Hives Verified 06/15/18 18:49 rosuvastatin Allergy Intermediate Hives Verified 06/15/18 17:23 doxycycline AdvReac Intermediate vomiting Verified 06/15/18 17:23 lactose AdvReac Intermediate Diarrhea Verified 06/15/18 18:49 [id number] Reductase AdvReac Intermediate Cramping Verified 06/15/18 17:23 Inhibitor of the Muscles nitrofurantoin AdvReac Nausea/Vomi Verified 09/21/18 09:57 [From Macrobid] ting Home Medications Medication Instructions Recorded Confirmed Type aspirin 81 mg PO DAILY 06/15/18 09/21/18 History calcium citrate 500 mg PO DAILY 06/15/18 09/21/18 History duloxetine [Cymbalta] 20 mg PO DAILY 06/15/18 09/21/18 History omeprazole 20 mg PO DAILY 06/15/18 09/21/18 History losartan 50 mg PO DAILY 06/17/18 09/21/18 History levofloxacin [Levaquin] 500 mg PO DAILY 09/21/18 09/21/18 History Active Medications: Active Medications Acetaminophen (Tylenol) 650 mg PO Q4H PRN PRN Reason: Temp > 100.4 Acetaminophen (Tylenol) 650 mg PO Q6H PRN PRN Reason: PAIN 1 - 5, Hydrocodone Bitart/Acetaminophen ([place] 5/325) 1 tab PO Q6H PRN PRN Reason: PAIN 6 - 10, Al Hydroxide/Mg Hydroxide (Milk Of Laxmi Liq) 30 ml PO Q12H PRN PRN Reason: Mild Constipation Aspirin (Aspirin Chew) 81 mg PO DAILY [facility] Calcium Carbonate (Oscal) 500 mg PO DAILY [facility] Duloxetine HCl (Cymbalta) 30 mg PO DAILY [facility] Enoxaparin Sodium (Lovenox Inj) 30 mg SQ Q24H [facility] Fentanyl (Duragesic 50 Mcg Patch.72hr) 1 patch T-DERMAL Q3D [facility] Potassium Chloride/Sodium Chloride (Ns + Kcl 20 Meq Inj) 1,000 mls @ 84 mls/hr IV.CONT .[id number] [facility] Losartan Potassium (Cozaar) 50 mg PO DAILY [facility] Nifedipine (Procardia Xl) 30 mg PO DAILY [facility] Ondansetron HCl (Zofran Inj) 4 mg IV.PUSH Q6H PRN PRN Reason: NAUSEA OR VOMITING Pantoprazole Sodium (Protonix) 20 mg PO DAILY [facility] Patch Removal (Remove Old Patch) 1 each T-DERMAL Q3D [facility] Senna/Docusate Sodium (Jocelin-Colace) 1 tab PO BID [facility] Physical Exam Vital signs: Last Vital Signs Temp 98.2 F 09/21/18 09:53 Pulse 98 H 09/21/18 09:53 Resp 15 09/21/18 11:00 BP 196/84 H 09/21/18 09:53 Pulse Ox 97 09/21/18 09:53 Narrative: GENERAL: This is a well-nourished, well-developed patient, in no apparent distress. CARDIOVASCULAR: Regular rate and rhythm RESPIRATORY: Clear to auscultation. Breath sounds equal bilaterally. GASTROINTESTINAL: Abdomen soft, non-tender, nondistended. Normal active bowel sounds MUSCULOSKELETAL: Extremities without clubbing, cyanosis, or edema. NEURO: Alert & Oriented. Moves all ext x4 Results Labs CBC & Chem 7: 09/22/18 09:11 09/22/18 09:11 Caprini VTE Risk Assessment Caprini VTE Risk Assessment: Moderate/High Risk (score >= 2) Caprini Risk Assessment Model: Point Value = 1 Point Value = 2 Point Value = 3 Point Value = 5 Age 41-60 Minor surgery BMI > 25 kg/m2 Swollen legs Varicose veins or History of unexplained or recurrent spontaneous Oral contraceptives or hormone replacement Sepsis (< 1 month) Serious lung disease, including pneumonia (< 1 month) Abnormal pulmonary function Acute myocardial infarction Congestive heart failure (< 1 month) History of inflammatory bowel disease Medical patient at bed rest Age 61-74 Arthroscopic surgery Major open surgery (> 45 min) Laparoscopic surgery (> 45 min) Malignancy Confined to bed (> 72 hours) Immobilizing plaster cast Central venous access Age >= 75 History of VTE Family history of VTE Factor V Leiden Prothrombin [id number] Lupus anticoagulant Anticardiolipin antibodies Elevated serum homocysteine Heparin-induced thrombocytopenia Other congenital or acquired thrombophilia Stroke (< 1 month) Elective arthroplasty Hip, pelvis, or leg fracture Acute spinal cord injury (< 1 month) Prophylaxis Regimen: Total Risk Factor Score Risk Level Prophylaxis Regimen 0-1 Low Early ambulation 2 Moderate Order ONE of the following: *Sequential Compression Device (SCD) *Heparin 5000 units SQ BID 3-4 Higher Order ONE of the following medications: *Heparin 5000 units SQ TID *Enoxaparin/Lovenox 40 mg SQ daily (WT < 150 kg, CrCl > 30 mL/min) *Enoxaparin/Lovenox 30 mg SQ daily (WT < 150 kg, CrCl > 10-29 mL/min) *Enoxaparin/Lovenox 30 mg SQ BID (WT < 150 kg, CrCl > 30 mL/min) AND/OR *Sequential Compression Device (SCD) 5 or more Highest Order ONE of the following medications: *Heparin 5000 units SQ TID (Preferred with Epidurals) *Enoxaparin/Lovenox 40 mg SQ daily (WT < 150 kg, CrCl > 30 mL/min) *Enoxaparin/Lovenox 30 mg SQ daily (WT < 150 kg, CrCl > 10-29 mL/min) *Enoxaparin/Lovenox 30 mg SQ BID (WT < 150 kg, CrCl > 30 mL/min) AND *Sequential Compression Device (SCD) Assessment and Plan Plan This is an 83-year-old female patient with past medical history which includes hypertension, hyperlipidemia, hypothyroidism, GERD, Cantor's esophagitis and long-standing urinary frequency with incomplete bladder emptying. Patient presents to the ER due to worsening right hip pain. Patient states she has hip pain in her right hip from arthritis. She reports today the hip pain is so severe that she cannot get out of bed. Patient's daughter at bedside reports that patient has increase BLE edema. The edema and hip pain have been limiting patient's ability to ambulate. She reports that she recently about 6 weeks ago had x-rays of her right hip because she thought she had broken it. She denies any trauma. She states the x-rays at that time were negative. The patient has an indwelling Murillo catheter for urinary retention and a UTI. She is currently being treated with Levaquin for that. She also complains of lower extremity edema. She states her right lower extremity is worse than her left however they are both swollen. She does report that she has been less mobile over the last several days to week. 1. acute on chronic right hip pain which is limiting ambulation Chest X-Ray 09/21/18 No acute disease Hip X-Ray 09/21/18 Negative. I do not see etiology for the right hip pain. follows with outpatient pain management in review of last outpatient pain management office note recommend increasing Cymbalta increase Cymbalta continue fentanyl patch at 25 mcg [place] PRN PT evaluation consult orthopedic surgery - Dr. Davila discussed the case with Dr. Aquino- no surgical indication at this time. Consult cancelled. BLE edema Venous Doppler Study 09/21/18 Negative for deep venous thrombosis possible related to poor nutrition lasix 20 mg IV x1 check CMP in AM HTN continue nifedipine 30 mg po daily Patient recently decreased to Losartan 50 mg by PCP Will increase back to 100 mg PO daily Chronic hyponatremia likely from poor intake. recheck in AM Patient had previously been on salt tablets, but was taken off by PCP Depression. increase Cymbalta DVT prophylaxis with Lovenox Attending Attestation The exam, history, and the medical decision-making described in the above note were completed with the assistance of the mid-level provider. I reviewed and agree with the findings presented. I attest that I had a [id number] encounter with the patient on the same day, and personally performed and documented my assessment and findings in the medical record. Patient examined. Assessment and plan formulated with Deloris Karimi PA-C. I agree with the above.
[2018-09-21] MEDS: Enoxaparin Inj 30 MG/0.3 ML Syringe SQ SCH (16:18)
--- NOTE | 2018-09-21 17:06 | P.CONPAL ---
Consult Service: Palliative Care Requesting Physician: Jorge Davila Reason for Consult: a. To assist with evaluation and management of symptoms including: pain, debility b. To assist medical decision maker(s) with: better understanding of current medical conditions; weighing benefits/burdens of medical treatment options; making medical treatment decisions. Primary Care Provider: Terrence Azul MD History of Present Illness History of Present Illness: Ms. So is a 83-year-old female who was brought to [place] emergency room today, 09/21/2018 with complaints of worsening hip pain. The pain is persistent and stemming from her right hip to which the patient attributes to arthritis. She is a resident of [facility] and reports that the pain is so severe she has been unable to get out of bed. She is been dealing with the pain progressively for the last 6 weeks or so. X-rays at that time did not show any fracture and she denies any recent falls. Past medical history includes urinary retention requiring indwelling Murillo catheter, hyponatremia, asthma, hypertension, hypothyroidism, hyperlipidemia, GERD, Cantor's esophagus , and chronic low back pain. The patient was also complaining of bilateral lower edema. She complains of the right extremity is more edematous than the left. She verbalizes that she has been less mobile over the last several days to week. The patient and family had concerns of the patient being returned back to [facility] with continued pain and were requesting to be seen by an orthopedic surgeon to discuss any options. The patient was admitted to observation to allow for the consult. Initial emergency room evaluation revealed: * Temp 98.2, pulse 98, respiratory rate 16, BP 196/84, pulse 97% on room air * Chest x-ray: No acute disease * Hip x-ray x-ray:Negative no etiology seen for right hip pain * Venous Doppler bilateral lower extremity:Negative for deep venous thrombosis Dr. Aquino (orthopedic surgery) was originally consulted that he felt like there was no surgical indication at this time and the consult was canceled. Palliative care was consulted to assist with symptom management and to discuss goals of care. Upon examination the patient is resting comfortably in ER bed. She complains of right hip pain which she describes as starting in her groin area and rates it a 8/10. She states the pain radiates down the front of her leg and wraps around to her back. She describes the pain as sharp and excruciating. She was previously using 25 mcg fentanyl patch and substituting with acetaminophen for breakthrough pain. Her daughter relates that this was not always controlling her pain but she was managing for the past 4 months. Patient also complains of what appears to be muscle cramping mostly at night. She states that especially when she needs to reposition herself she tenses up in fear of the pain. She has described muscle knots in her lower back and groin area previously. Also complains of bilateral lower extremity swelling right being worse than left. Venous Doppler was negative for DVT. Her daughter reports that her blood pressure medication (losartan 100 mg) was recently decreased in last week to 50 mg. She reports that [facility] called her primary care stating the patient had one reading of low blood pressure and the medication was since decreased. Since then she has progressively had more swelling her lower extremities. Function/Cognitive Trajectory: Prior to this admission the patient was somewhat downward trajectory with functional status. She was unable to ambulate due to the right hip pain and most days was unable to get out of bed. She has been dealing with chronic low back pain for over 20 years. She had been able to remain ambulatory until approximately 7 years ago when she had a right knee replacement. From that point on she suffered with increased pain to the right lower extremity which often left her not as mobile as she needed to be. In June she suffered a fall which resulted in a prolonged hospitalization/rehab and what led her to reside at [facility] for short-term. She usually though is able to ambulate with a rolling walker and sometimes a wheelchair. She is able to perform all ADLs independently. Review of Systems Constitutional: Reports body ache(s), Reports weakness Eyes: Reports blurry vision Cardiovascular: Reports leg swelling Musculoskeletal: Reports joint pain, Reports limited joint movement, Reports muscle cramps, Reports stiffness PMFSH - History History Provided By: Patient - Medical History Medical History: Medical History (Last Updated 09/21/18 @ 18:32 by LIZETH Oneill) Cantor esophagus GERD (gastroesophageal reflux disease) Hyperlipemia Incomplete bladder emptying Spondylisthesis Suprapubic catheter Urinary frequency Asthma HBP (high blood pressure) Hx of thyroid disease - Surgical History Surgical History: Surgical History (Last Updated 11/12/18 @ 18:32 by LIZETH Oneill) History of back surgery Hx of esophagogastroduodenoscopy Hx of tonsillectomy Total knee replacement status History of knee replacement Hx of cataract surgery - Family History Family History: Family History (Last Updated 09/21/18 @ 18:33 by LIZETH Oneill) Other CVA (cerebral vascular accident) Cardiovascular disease Diabetes - Social History I have reviewed the patient's Social History: Yes - Tobacco History Second Hand Smoke Exposure: No Tobacco Use In Past 30 Days: No Smoking Status: Never smoker Tobacco Type: Cigarettes - Alcohol History How Often Do You Have a Drink Containing Alcohol: Never - Substance Use History Substance History: No History of Abuse - Travel History History of Recent Travel: No Recent Travel in the [place] Within the Last 8 Weeks: No Recent Travel Out of the Country Within the Last 8 Weeks: No - Immunization History Tetanus Immunization: <5 Years Hx Influenza Vaccine This Season: Yes Medications and Allergies Active Medications: Active Medications Acetaminophen (Tylenol) 650 mg PO Q4H PRN PRN Reason: Temp > 100.4 Acetaminophen (Tylenol) 650 mg PO Q6H PRN PRN Reason: PAIN 1 - 5, Hydrocodone Bitart/Acetaminophen ([place] 5/325) 1 tab PO Q6H PRN PRN Reason: PAIN 6 - 10, Al Hydroxide/Mg Hydroxide (Milk Of Laxmi Liq) 30 ml PO Q12H PRN PRN Reason: Mild Constipation Aspirin (Aspirin Chew) 81 mg PO DAILY [facility] Calcium Carbonate (Oscal) 500 mg PO DAILY [facility] Duloxetine HCl (Cymbalta) 30 mg PO DAILY [facility] Enoxaparin Sodium (Lovenox Inj) 30 mg SQ Q24H [facility] Last Admin: 09/21/18 16:18 Dose: 30 mg Fentanyl (Duragesic 50 Mcg Patch.72hr) 1 patch T-DERMAL Q3D [facility] Potassium Chloride/Sodium Chloride (Ns + Kcl 20 Meq Inj) 1,000 mls @ 84 mls/hr IV.CONT .[id number] [facility] Last Admin: 09/21/18 16:18 Dose: 84 mls/hr Losartan Potassium (Cozaar) 50 mg PO DAILY [facility] Nifedipine (Procardia Xl) 30 mg PO DAILY [facility] Ondansetron HCl (Zofran Inj) 4 mg IV.PUSH Q6H PRN PRN Reason: NAUSEA OR VOMITING Pantoprazole Sodium (Protonix) 20 mg PO DAILY [facility] Patch Removal (Remove Old Patch) 1 each T-DERMAL Q3D [facility] Senna/Docusate Sodium (Jocelin-Colace) 1 tab PO BID [facility] Allergies Allergy/AdvReac Type Severity Reaction Status Date / Time niacin Allergy Severe Hives Verified 06/15/18 18:49 rosuvastatin Allergy Intermediate Hives Verified 06/15/18 17:23 doxycycline AdvReac Intermediate vomiting Verified 06/15/18 17:23 lactose AdvReac Intermediate Diarrhea Verified 06/15/18 18:49 Nmktcci-Ual-Fyp Reductase AdvReac Intermediate Cramping Verified 06/15/18 17:23 Inhibitor of the Muscles nitrofurantoin AdvReac Nausea/Vomi Verified 09/21/18 09:57 [From Macrobid] ting Home Medications Medication Instructions Recorded Confirmed Type aspirin 81 mg PO DAILY 06/15/18 09/21/18 History calcium citrate 500 mg PO DAILY 06/15/18 09/21/18 History duloxetine [Cymbalta] 20 mg PO DAILY 06/15/18 09/21/18 History omeprazole 20 mg PO DAILY 06/15/18 09/21/18 History losartan 50 mg PO DAILY 06/17/18 09/21/18 History levofloxacin [Levaquin] 500 mg PO DAILY 09/21/18 09/21/18 History Advance Directives Living Will: Yes Healthcare Surrogate: Yes Health Care Surrogate Name and Number: Venessa Ngo [phone] Power of Paper Production Engineer: No Documented care wishes: The patient has a documented living will stating that she would not want her dying to be artificially prolonged under the circumstances of the terminal condition, end-stage condition or persistent vegetative state. She would want life prolonging procedures to be withheld or withdrawn when the application of such procedures would serve only to prolong artificially the process of dying. She has named all 3 of her children joint healthcare surrogates, Venessa Ngo [phone], Bladimir So [phone], Yamile Locke [phone] Today's verbally stated goals: Patient verbalized today that she would like to get her pain under control. She understands that she will not be able to be pain-free but she verbalizes a pain goal of 4/10. She also for the short-term would like to return back to [facility] with the possibility of returning back home in the long run. Family/friends goals: Patient's daughter Venessa was at bedside. She is in agreements with her mother's wishes Ethical and Legal Issues: The patient has a documented living will. She has named all 3 of her children [facility] surrogates, Venessa Ngo [phone], Bladimir So [phone], Yamile Locke [phone] Physical Exam Vital Signs: Vital Signs - 24 hr 09/21/18 09:53 09/21/18 11:00 09/21/18 16:00 Temperature 98.2 F 98.4 F Pulse Rate 98 H 88 Respiratory Rate 16 15 16 Blood Pressure 196/84 H 151/66 H Pulse Oximetry 97 93 L I&O: Intake & Output 09/19/18 09/20/18 09/21/18 09/22/18 06:59 06:59 06:59 06:59 Output Total 1800 / 1800 Balance -1800 / -1800 Weight 67.585 kg Physical Exam: CONSTITUTIONAL/GENERAL: This is an adequately nourished patient, in no apparent distress. TUBES/LINES/DRAINS: PIV, Murillo cath SKIN: No jaundice, rashes, or lesions. Ecchymoses on upper extremities. No wounds seen anteriorly. Skin temperature appropriate. Not diaphoretic. HEAD: Atraumatic. Normocephalic. EYES: Pupils equal and round and reactive. Extraocular motions intact. No scleral icterus. No injection or drainage. Fundi not examined. ENT: Hearing grossly normal. Nose without bleeding or purulent drainage. Throat without visible erythema, exudates, masses, or lesions. NECK: Trachea midline. Supple, nontender. No palpable thyroid enlargement or nodularity. CARDIOVASCULAR: 2/6 systolic murmur. No JVD. Peripheral pulses symmetric. RESPIRATORY/CHEST: Symmetric, unlabored respirations. Clear to auscultation. Breath sounds equal bilaterally. No wheezes, rales, or rhonchi. GASTROINTESTINAL: Abdomen soft, non-tender, nondistended. No hepato-splenomegaly , or palpable masses. No guarding. Bowel sounds present. GENITOURINARY: Without palpable bladder distension. Murillo catheter in place. MUSCULOSKELETAL: 1+ edema to bilateral lower extremities. No joint tenderness or effusion noted. No calf tenderness. No mottling or clubbing. LYMPHATICS: No palpable cervical or supraclavicular adenopathy. NEUROLOGICAL: Awake and alert. Motor and sensory grossly within normal limits. Follows commands. Cognitively sharp. Moves all extremities. PSYCHIATRIC: No obvious anxiety/depression. no apparent hallucinations or other psychotic thought process. Diagnostic Tests Result Diagrams: 09/22/18 09:11 09/22/18 04:26 Imaging: Impressions Chest X-Ray 09/21/18 00:00 CONCLUSION: No acute disease Hip X-Ray 09/21/18 09:58 CONCLUSION: Negative. I do not see etiology for the right hip pain. Venous Doppler Study 09/21/18 10:02 CONCLUSION: 1. Negative for deep venous thrombosis Patient/Family Conference Present at Family Conference: Venessa Huber, daughter/[facility] Family Conference Location: Bedside Issues Discussed: * Palliative care role, purpose, approach * Additional medical, psychosocial, and spiritual history * Patients general health, functional status, and cognitive changes in the months leading up to the current hospitalization * Patient/family understanding of the current medical problems * Patient/family understanding of prognosis * Patients goals of care as best understood from advance directives and/or conversations and/or values * Current medical treatment options and benefits/burdens of those options * Likely scenarios comparing ongoing aggressive care with a transition to comfort measures only; family previously has discussed hospice and no longer interested * Questions answered to the best of my ability * Palliative care contact information provided In summary Ms. So is currently able to participate in her own healthcare decision making. Should she become a cath capacitated anytime she has named all 3 of her adult children as her joint healthcare surrogate. Currently the patient is concerned with pain control. She understands that she will will most likely not be able to be free of pain but verbalizes a pain goal of a 4 out of 10. She previously was using 25 mcg fentanyl patch with Tylenol for breakthrough pain. She recently was increased to 50 mcg patch with hydrocodone 5/325 mg daily 6 hours for pain rated 6 through 10. We discussed using these medications as needed instead of using the Tylenol. We also discussed the possibility of adding a muscle relaxer to which the patient would be open to try. Concerning CODE STATUS, the patient wishes to remain FULL CODE. Again her goal is to return to [facility] in the short-term with the possibility of returning to her own home. 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 Spiritual: Holiness Legal: The patient has a documented living will and has named her 3 adult children as joint healthcare surrogate she should become incapacitated any time. Venessa Ngo [phone], Bladimir So [phone], Yamile Locke Ethical issues impacting care: No known ethical issues impacting care at this time Important Contacts: Venessa Ngo [phone], Bladimir So [phone], Yamile Locke [phone] Prognosis: By report the patient has had a somewhat downward trajectory over the last 3-4 months. Her family indicates that she does well and then has these periods where she is in a lot of pain unable to ambulate well. It appears harder and harder for her to come back from these periods. Given her age and multiple comorbidities she certainly is at increased risk for continued decline, bedbound status, and the related sequelae. Code Status: Full Code Plan: * LEGAL DECISION MAKER -the patient is currently able to participate in her own healthcare decision making. Should she become incapacitated any time she has named all 3 of her adult children her healthcare surrogate * GOALS - Ms. So is currently able to participate in her own healthcare decision making. Should she become a cath capacitated anytime she has named all 3 of her adult children as her joint healthcare surrogate. Currently the patient is concerned with pain control. She understands that she will will most likely not be able to be free of pain but verbalizes a pain goal of a 4 out of 10. She previously was using 25 mcg fentanyl patch with Tylenol for breakthrough pain. She recently was increased to 50 mcg patch with hydrocodone 5/325 mg daily 6 hours for pain rated 6 through 10. We discussed using these medications as needed instead of using the Tylenol. We also discussed the possibility of adding a muscle relaxer to which the patient would be open to try. Concerning CODE STATUS, the patient wishes to remain FULL CODE. Again her goal is to return to [facility] in the short-term with the possibility of returning to her own home. * CODE STATUS -FULL CODE * SYMPTOMS Pain -patient suffers with chronic back pain. She was using fentanyl patch 25 mcg for approximately 4 months with acetaminophen for breakthrough pain with fair relief though the patient admits over the last week or 2 the pain has gotten increasingly worse. During this hospitalization fentanyl patch was increased to 50 mcg. Hydrocodone 5 mg for pain rated 6 through 10 every 6 hours was added for breakthrough pain. Tylenol 650mg every 6 hours for pain rated 1 through 5. Will suggest discharging patient with increased fentanyl patch 50 mcg, as well as the hydrocodone 5 mg for breakthrough pain. Could also consider adding a muscle relaxer if the patient remains open to this. Leg swelling -has gotten worse over the past week. Right worse than left. Family has noticed an increase in swelling since losartan was decreased to 50 mg. Patient also verbalized that she has not been as mobile as she has in the past. Would not her to increase her ARB back to 100 mg as her blood pressure does not seem to be in adequate control at this time. Debility - Patient has had a steady decline in functional status. She has a difficult time ambulating when she is pain exacerbations. She has verbalized that she just wants to get her pain under control but her family has stated they would want her to continue with aggressive measures. Patient would possibly qualify for hospice at this point if goals were in line with comfort measures only. If they wish to continue with aggressive measures, she may benefit from a visit with pain management and then continue with physical therapy daily. Palliative care will continue to follow during hospital course as condition evolves, to assist patient/decision maker with understanding of medical conditions, weighing benefits/burdens of treatment options, for clarification of goals of treatment. Additionally will assist with any symptoms of palliative concern. Appreciation Thank you for the opportunity to participate in the care of Danelle So. Attestation Attestation: To help prompt me to consider important information that might be impacting today's encounter and assessment, information from prior notes written by myself or my colleagues may have been "brought forward" into today's note. My signature on this note, however, is an attestation that I personally performed the exam, history, and/or decision-making noted today, and, unless otherwise indicated, the interactions with patient, family, and staff as well as the review of records all occurred today. I also attest that the listed assessment and stated plan reflect my best clinical judgment today based on the combination of historical information, prior notes, and today's exam/ interactions. When time spent is documented, it refers only to time spent today by the signer, or if indicated, combined time spent today by collaborating physician/nurse practitioner.
[2018-09-21] MEDS: Senna/Docusate Sodium 8.6/50 MG Tablet PO SCH (20:00)
[2018-09-22 05:16] LABS: Baso # (Auto) 0.1 th/mm3 (0.0-0.2); Baso % (Auto) 1.2 % (0.0-2.0); Eos # (Auto) 0.3 th/mm3 (0.0-0.4); Eos % (Auto) 4.9 % (0.0-4.0); Hematocrit 35.7 % (35.0-46.0); Hemoglobin 11.8 gm/dL (11.6-15.3); Lymph % (Auto) 18.8 % (9.0-44.0); Mean Corpuscular HGB Conc 33.2 % (32.0-36.0); Mean Corpuscular Hemoglobin 29.9 pg (27.0-34.0); Mean Corpuscular Volume 90.1 fL (80.0-100.0); Mean Platelet Volume 6.9 fL (7.0-11.0); Mono # (Auto) 0.6 th/mm3 (0.0-0.9); Mono % (Auto) 11.8 % (0.0-8.0); Neut # (Auto) 3.3 th/mm3 (1.8-7.7); Neut % (Auto) 63.3 % (16.0-70.0); Platelet Count 271 th/mm3 (150-450); Red Blood Count 3.96 mil/mm3 (4.00-5.30); Red Cell Distribution Width 13.9 % (11.6-17.2); White Blood Count 5.1 th/mm3 (4.0-11.0)
[2018-09-22 05:34] LABS: Albumin 3.5 g/dL (3.4-5.0); Anion Gap 7 meq/L (5-15); Aspartate Aminotransferase 15 U/L (15-37); Blood Urea Nitrogen 14 mg/dL (7-18); Calcium 9.1 mg/dL (8.5-10.1); Carbon Dioxide 30.6 meq/L (21.0-32.0); Chloride 97 meq/L (98-107); Glomerular Filtration Rate 85 mL/min (>89); Glucose,Random 93 mg/dL (74-106); Potassium 3.9 meq/L (3.5-5.1); Sodium 135 meq/L (136-145)
[2018-09-22 05:36] LABS: Alanine Aminotransferase 19 U/L (10-53)
[2018-09-22 05:37] LABS: Alkaline Phosphatase 67 U/L (45-117); Total Protein 6.9 g/dL (6.4-8.2)
[2018-09-22] MEDS: Calcium Carbonate 500 MG Tablet PO SCH (09:04)
[2018-09-22] MEDS: Pantoprazole Sodium 20 MG DR Tablet PO SCH (09:08)
[2018-09-22] MEDS: Senna/Docusate Sodium 8.6/50 MG Tablet PO SCH ×2 (09:10→20:17)
[2018-09-22 10:07] LABS: Baso # (Auto) 0.1 th/mm3 (0.0-0.2); Eos # (Auto) 0.1 th/mm3 (0.0-0.4); Eos % (Auto) 2.4 % (0.0-4.0); Hematocrit 38.4 % (35.0-46.0); Hemoglobin 12.6 gm/dL (11.6-15.3); Lymph # (Auto) 0.8 th/mm3 (1.0-4.8); Lymph % (Auto) 12.8 % (9.0-44.0); Mean Corpuscular HGB Conc 32.8 % (32.0-36.0); Mean Corpuscular Hemoglobin 29.6 pg (27.0-34.0); Mean Corpuscular Volume 90.2 fL (80.0-100.0); Mono # (Auto) 0.5 th/mm3 (0.0-0.9); Mono % (Auto) 9.3 % (0.0-8.0); Neut # (Auto) 4.4 th/mm3 (1.8-7.7); Neut % (Auto) 74.5 % (16.0-70.0); Platelet Count 293 th/mm3 (150-450); Red Blood Count 4.26 mil/mm3 (4.00-5.30); Red Cell Distribution Width 13.5 % (11.6-17.2); White Blood Count 5.9 th/mm3 (4.0-11.0)
[2018-09-22 10:25] LABS: Calcium 9.2 mg/dL (8.5-10.1); Carbon Dioxide 31.3 meq/L (21.0-32.0); Magnesium 1.9 mg/dL (1.5-2.5); Potassium 4.2 meq/L (3.5-5.1)
[2018-09-22] MEDS: levoFLOXacin 500 MG Tablet PO SCH (13:15)
[2018-09-22] MEDS: Enoxaparin Inj 30 MG/0.3 ML Syringe SQ SCH (14:48)
--- NOTE | 2018-09-22 16:53 | P.PNIM ---
Subjective Interval history: LE edema improved. now pt c/o pain at right hip. Physical Exam Vital signs: Last Vital Signs Temp 97.9 F 09/22/18 16:00 Pulse 87 09/22/18 16:00 Resp 18 09/22/18 16:00 BP 113/62 09/22/18 16:00 Pulse Ox 95 09/22/18 16:00 Narrative: GENERAL: This is a well-nourished, well-developed patient, in no apparent distress. CARDIOVASCULAR: Regular rate and rhythm RESPIRATORY: Clear to auscultation. Breath sounds equal bilaterally. GASTROINTESTINAL: Abdomen soft, non-tender, nondistended. Normal active bowel sounds MUSCULOSKELETAL: Extremities without clubbing, cyanosis, or edema. NEURO: Alert & Oriented. Moves all ext x4 Results Labs CBC & Chem 7: 09/22/18 09:11 09/22/18 09:11 Assessment and Plan Plan This is an 83-year-old female patient with past medical history which includes hypertension, hyperlipidemia, hypothyroidism, GERD, Cantor's esophagitis and long-standing urinary frequency with incomplete bladder emptying. Patient presents to the ER due to worsening right hip pain. Patient states she has hip pain in her right hip from arthritis. She reports today the hip pain is so severe that she cannot get out of bed. Patient's daughter at bedside reports that patient has increase BLE edema. The edema and hip pain have been limiting patient's ability to ambulate. She reports that she recently about 6 weeks ago had x-rays of her right hip because she thought she had broken it. She denies any trauma. She states the x-rays at that time were negative. The patient has an indwelling Murillo catheter for urinary retention and a UTI. She is currently being treated with Levaquin for that. She also complains of lower extremity edema. She states her right lower extremity is worse than her left however they are both swollen. She does report that she has been less mobile over the last several days to week. 1. acute on chronic right hip pain which is limiting ambulation Chest X-Ray 09/21/18 No acute disease Hip X-Ray 09/21/18 Negative. I do not see etiology for the right hip pain. follows with outpatient pain management in review of last outpatient pain management office note recommend increasing Cymbalta increase Cymbalta continue fentanyl patch at 25 mcg Banco PRN PT evaluation consult orthopedic surgery - Dr. Davila discussed the case with Dr. Aquino- no surgical indication at this time. Consult cancelled. - continue current treatment plan - anticipate d/c to SNF in AM BLE edema Venous Doppler Study 09/21/18 Negative for deep venous thrombosis possible related to poor nutrition lasix 20 mg IV x1 check CMP in AM HTN continue nifedipine 30 mg po daily Patient recently decreased to Losartan 50 mg by PCP Will increase back to 100 mg PO daily Chronic hyponatremia likely from poor intake. recheck in AM Patient had previously been on salt tablets, but was taken off by PCP Depression. increase Cymbalta DVT prophylaxis with Lovenox
--- NOTE | 2018-09-22 17:14 | P.PNPAL ---
Reason for Visit Reason for visit: a. To assist with evaluation and management of symptoms including: pain, debility b. To assist medical decision maker(s) with: better understanding of current medical conditions; weighing benefits/burdens of medical treatment options; making medical treatment decisions. Subjective Subjective/Interval History: Ms. So is a 83-year-old female who was brought to [place] emergency room today, 09/21/2018 with complaints of worsening hip pain. The pain is persistent and stemming from her right hip to which the patient attributes to arthritis. She is a resident of [facility] and reports that the pain is so severe she has been unable to get out of bed. She is been dealing with the pain progressively for the last 6 weeks or so. X-rays at that time did not show any fracture and she denies any recent falls. Past medical history includes urinary retention requiring indwelling Murillo catheter, hyponatremia, asthma, hypertension, hypothyroidism, hyperlipidemia, GERD, Cantor's esophagus , and chronic low back pain. The patient was also complaining of bilateral lower edema. She complains of the right extremity is more edematous than the left. She verbalizes that she has been less mobile over the last several days to week. The patient and family had concerns of the patient being returned back to [facility] with continued pain and were requesting to be seen by an orthopedic surgeon to discuss any options. The patient was admitted to observation to allow for the consult. Dr. Aquino (orthopedic surgery) was originally consulted that he felt like there was no surgical indication at this time and the consult was canceled. Palliative care was consulted to assist with symptom management and to discuss goals of care. Upon examination the patient is resting comfortably in ER bed. She complains of right hip pain which she describes as starting in her groin area and rates it a 8/10. She states the pain radiates down the front of her leg and wraps around to her back. She describes the pain as sharp and excruciating. She was previously using 25 mcg fentanyl patch and substituting with acetaminophen for breakthrough pain. Her daughter relates that this was not always controlling her pain but she was managing for the past 4 months. Patient also complains of what appears to be muscle cramping mostly at night. She states that especially when she needs to reposition herself she tenses up in fear of the pain. She has described muscle knots in her lower back and groin area previously. Also complains of bilateral lower extremity swelling right being worse than left. Venous Doppler was negative for DVT. Her daughter reports that her blood pressure medication (losartan 100 mg) was recently decreased in last week to 50 mg. She reports that [facility] called her primary care stating the patient had one reading of low blood pressure and the medication was since decreased. Since then she has progressively had more swelling her lower extremities. 09/22/18 Palliative care continues to follow to assist with with symptom management and to help address goals of care. Patient verbalizes better pain control today. Fentanyl patch was increased yesterday to 50 mcg and as needed hydrocodone was increased from 5 mg to 7.5 mg today. She was able to work with physical therapy and ambulated approximately 40 feet. Even though this is less than what she was doing at [facility], she is pleased that she was able to get up out of bed. She verbalizes that her leg swelling has improved and is back to baseline. She does complain of what she describes as a bladder spasm overnight and states that she had some bloody drainage from her catheter. Denies any urine leaking. She states this has happened to her in the past but does not frequently occur. Verbalizes no other complaints at this time. Currently no new clinical data is available Advance Directives Living Will: Copy in medical record Health Care Surrogate: Copy in medical record Health Care Surrogate Name and Number: Venessa Ngo [phone] Documented care wishes:: The patient has a documented living will stating that she would not want her dying to be artificially prolonged under the circumstances of the terminal condition, end-stage condition or persistent vegetative state. She would want life prolonging procedures to be withheld or withdrawn when the application of such procedures would serve only to prolong artificially the process of dying. She has named all 3 of her children [facility] surrogates, Venessa Ngo [phone], Bladimir So [phone], Yamile Locke [phone] Significant change in goals:: No significant changes in goals of care. Objective Vital Signs: Vital Signs 09/21/18 18:32 09/21/18 22:34 09/22/18 00:55 Temperature 98.4 F 98.7 F Pulse Rate 88 76 Respiratory Rate 16 20 20 Blood Pressure 136/64 148/72 H Pulse Oximetry 94 L 09/22/18 04:00 09/22/18 08:00 09/22/18 12:00 Temperature Pulse Rate 82 87 86 Respiratory Rate 20 18 18 Blood Pressure 132/68 180/84 H 138/67 Pulse Oximetry 98 97 96 09/22/18 16:00 Temperature 97.9 F Pulse Rate 87 Respiratory Rate 18 Blood Pressure 113/62 Pulse Oximetry 95 Intake & Output 09/21/18 09/22/18 09/22/18 18:59 06:59 18:59 Intake Total 150 / 150 Output Total 1800 / 1800 Balance -1650 / -1650 Weight 67.585 kg Intake: IV 150 / 150 NS + KCl 20 mEq Inj 1,000 ML @ 150 / 150 84 mls/hr IV.CONT .[id number] [facility] Rx#:[id number] Output: Urine Amount (Catheter) 1800 / 1800 Indwelling Urethral Catheter 1800 / 1800 Other: Date of Last Bowel Movement 09/20/18 Weight On Admission 67.585 kg Physical Exam: CONSTITUTIONAL/GENERAL: This is an adequately nourished patient, in no apparent distress. TUBES/LINES/DRAINS: PIV, Murillo cath ENT: Hearing grossly normal. Nose without bleeding or purulent drainage. Throat without visible erythema, exudates, masses, or lesions. CARDIOVASCULAR: 2/6 systolic murmur. No JVD. Peripheral pulses symmetric. RESPIRATORY/CHEST: Symmetric, unlabored respirations. Clear to auscultation. Breath sounds equal bilaterally. No wheezes, rales, or rhonchi. GASTROINTESTINAL: Abdomen soft, non-tender, nondistended. No hepato-splenomegaly , or palpable masses. No guarding. Bowel sounds present. GENITOURINARY: Without palpable bladder distension. Murillo catheter in place. MUSCULOSKELETAL: Trace edema to bilateral lower extremities. No joint tenderness or effusion noted. No calf tenderness. No mottling or clubbing. NEUROLOGICAL: Awake and alert. Motor and sensory grossly within normal limits. Follows commands. Cognitively sharp. Moves all extremities. PSYCHIATRIC: No obvious anxiety/depression. no apparent hallucinations or other psychotic thought process. Diagnostic Tests Laboratory: Laboratory Results - last 72 hr 09/22/18 09/22/18 09/22/18 04:26 04:26 09:11 WBC 5.1 5.9 RBC 3.96 L 4.26 Hgb 11.8 12.6 Hct 35.7 38.4 MCV 90.1 90.2 MCH 29.9 29.6 MCHC 33.2 32.8 RDW 13.9 13.5 Plt Count 271 293 MPV 6.9 L 7.0 Neut % (Auto) 63.3 74.5 H Lymph % (Auto) 18.8 12.8 [place] % (Auto) 11.8 H 9.3 H Eos % (Auto) 4.9 H 2.4 Baso % (Auto) 1.2 1.0 Neut # (Auto) 3.3 4.4 Lymph # (Auto) 1.0 0.8 L [place] # (Auto) 0.6 0.5 Eos # (Auto) 0.3 0.1 Baso # (Auto) 0.1 0.1 WBC Differential . . Differential Comment Auto diff final Auto diff final Sodium 135 L Potassium 3.9 Chloride 97 L Carbon Dioxide 30.6 Anion Gap 7 BUN 14 Creatinine 0.66 Estimated GFR 85 L Random Glucose 93 Calcium 9.1 Magnesium Total Bilirubin 0.3 AST 15 ALT 19 Alkaline Phosphatase 67 Total Protein 6.9 Albumin 3.5 09/22/18 09:11 WBC RBC Hgb Hct MCV MCH MCHC RDW Plt Count MPV Neut % (Auto) Lymph % (Auto) [place] % (Auto) Eos % (Auto) Baso % (Auto) Neut # (Auto) Lymph # (Auto) [place] # (Auto) Eos # (Auto) Baso # (Auto) WBC Differential Differential Comment Sodium 133 L Potassium 4.2 Chloride 94 L Carbon Dioxide 31.3 Anion Gap 8 BUN 14 Creatinine 0.64 Estimated GFR 88 L Random Glucose 97 Calcium 9.2 Magnesium 1.9 Total Bilirubin AST ALT Alkaline Phosphatase Total Protein Albumin Result Diagrams: 09/22/18 09:11 09/22/18 09:11 Assessment and Plan - Symptom Scale (1) Pain 0-10 Scale: 3 (2) Leg swelling 0-10 Scale: Unable to quantify Pertinent Non-Medical Issues: Psychosocial: The patient is a retired [employer]. She worked in the area for the past 50 years she is originally from [facility] she is currently and has 3 living adult children. She previously was very active with her friends. Enjoyed meeting and being an active member of the [employer]. Spiritual: [employer] Legal: The patient has a documented living will and has named her 3 adult children as joint healthcare surrogate she should become incapacitated any time. Venessa Ngo [phone], Bladimir So [phone], Yamile Locke Ethical issues impacting care: No known ethical issues impacting care at this time Important Contacts: Venessa Ngo [phone], Bladimir So [phone], Yamile Hernandezusko [phone] Prognosis: By report the patient has had a somewhat downward trajectory over the last 3-4 months. Following a fall on June the patient had a prolonged rehab course which ended in her temporarily residing in [facility]. She was working with physical therapy but given her increased exacerbations of pain was not able to do so on a consistent basis. Her functionality has greatly over been reduced and she mostly sits at the side of the bed or in a chair. She requires occasional assistance with ADLs though she states that has been increasing considerably over the past few weeks. Her family indicates that she does well and then has these periods where she is in a lot of pain and unable to function well. It appears harder and harder for her to come back from these periods. Given her age and multiple comorbidities she certainly is at increased risk for continued decline, bedbound status, and the related sequelae. Patient would be hospice appropriate if her goals were in line with hospice philosophy. Code Status: No Code DNR Plan: * LEGAL DECISION MAKER -the patient is currently able to participate in her own healthcare decision making. Should she become incapacitated any time she has named all 3 of her adult children her healthcare surrogate * GOALS - Ms. So is currently able to participate in her own healthcare decision making. Patient continues to want to work towards pain control as her main goal. Concerning CODE STATUS, the patient wishes to remain FULL CODE. Again her goal is to return to [facility] in the short-term with the possibility of returning to her own home. * CODE STATUS -FULL CODE * SYMPTOMS Pain -patient suffers with chronic back pain. She was using fentanyl patch 25 mcg for approximately 4 months with acetaminophen for breakthrough pain with fair relief though the patient admits over the last week or 2 the pain has gotten increasingly worse. During this hospitalization fentanyl patch was increased to 50 mcg. Hydrocodone 5 mg for pain rated 6 through 10 every 6 hours was added for breakthrough pain. Tylenol 650mg every 6 hours for pain rated 1 through 5. Pain control with fentanyl patch increase. Medical team also increase hydrocodone to 7.5 mg every 6 hours as needed. This appears to be a good regimen for the patient and would like to monitor it over the next 12- 24 hours. Would again suggest possible muscle relaxant as needed in the near future Leg swelling -has gotten worse over the past week, appears to be back at baseline at this time. Would consider increasing her ARB back to 100 mg as her blood pressure does not seem to be in adequate control at this time. Debility - Patient has had a steady decline in functional status. She has a difficult time ambulating when she is pain exacerbations. She has verbalized that she just wants to get her pain under control but her family has stated they would want her to continue with aggressive measures. Patient would possibly qualify for hospice at this point if goals were in line with comfort measures only. If they wish to continue with aggressive measures, she may benefit from a visit with pain management and then continue with physical therapy daily. Palliative care will continue to follow during hospital course as condition evolves, to assist patient/decision maker with understanding of medical conditions, weighing benefits/burdens of treatment options, for clarification of goals of treatment. Additionally will assist with any symptoms of palliative concern. Attestation Attestation: To help prompt me to consider important information that might be impacting today's encounter and assessment, information from prior notes written by myself or my colleagues may have been "brought forward" into today's note. My signature on this note, however, is an attestation that I personally performed the exam, history, and/or decision-making noted today, and, unless otherwise indicated, the interactions with patient, family, and staff as well as the review of records all occurred today. I also attest that the listed assessment and stated plan reflect my best clinical judgment today based on the combination of historical information, prior notes, and today's exam/ interactions. When time spent is documented, it refers only to time spent today by the signer, or if indicated, combined time spent today by collaborating physician/nurse practitioner.
[2018-09-23 08:05] VITALS: RESP 16
[2018-09-23] MEDS: Senna/Docusate Sodium 8.6/50 MG Tablet PO SCH (10:28)
[2018-09-23] MEDS: Calcium Carbonate 500 MG Tablet PO SCH (10:28)
[2018-09-23] MEDS: Pantoprazole Sodium 20 MG DR Tablet PO SCH (10:28)
[2018-09-23] MEDS: levoFLOXacin 500 MG Tablet PO SCH (10:28)
[2018-09-23 11:27] VITALS: BP 117/59; PULSE 92; TEMP 98.1; O2SAT 96
--- NOTE | 2018-09-23 11:53 | P.DS ---
DS: Providers Date of admission: 09/23/18 09:39 Primary care physician: Terrence Azul MD Consults: 09/21/18 14:39 Consult to Palliative Care Routine Consulting Provider: Nichelle Hdz [employer] Technician:: Malcom Ward Reason for Consultation: clarification of goals Notified:: Service Spoke with:: Joyce Date Notified:: 09/21/18 Time Notified:: 15:00 Ordering Provider: RAGHAV 09/23/18 11:17 HUB Only Consult Order Routine Consulting Provider: Radha Pelaez Brief History from admission: This is an 83-year-old female patient with past medical history which includes hypertension, hyperlipidemia, hypothyroidism, GERD, Cantor's esophagitis and long-standing urinary frequency with incomplete bladder emptying. Patient presents to the ER due to worsening right hip pain. Patient states she has hip pain in her right hip from arthritis. She reports today the hip pain is so severe that she cannot get out of bed. Patient's daughter at bedside reports that patient has increase BLE edema. The edema and hip pain have been limiting patient's ability to ambulate. She reports that she recently about 6 weeks ago had x-rays of her right hip because she thought she had broken it. She denies any trauma. She states the x-rays at that time were negative. The patient has an indwelling Murillo catheter for urinary retention and a UTI. She is currently being treated with Levaquin for that. She also complains of lower extremity edema. She states her right lower extremity is worse than her left however they are both swollen. She does report that she has been less mobile over the last several days to week. Past Medical History hypertension, hyperlipidemia, hypothyroidism, GERD, Cantor's esophagitis and long-standing urinary frequency with incomplete bladder emptying Past Surgical History Suprapubic catheter placement, EGD/colonoscopy, back surgery, D&C, tonsillectomy and adenoidectomy, total knee replacement Family History CVA, heart disease, diabetes mellitus and cancer unknown type Social History Patient is Denies EtOH use tobacco use or illicit drug use DS: Summary This is an 83-year-old female patient with past medical history which includes hypertension, hyperlipidemia, hypothyroidism, GERD, Cantor's esophagitis and long-standing urinary frequency with incomplete bladder emptying. Patient presents to the ER due to worsening right hip pain. Patient states she has hip pain in her right hip from arthritis. She reports today the hip pain is so severe that she cannot get out of bed. Patient's daughter at bedside reports that patient has increase BLE edema. The edema and hip pain have been limiting patient's ability to ambulate. She reports that she recently about 6 weeks ago had x-rays of her right hip because she thought she had broken it. She denies any trauma. She states the x-rays at that time were negative. The patient has an indwelling Murillo catheter for urinary retention and a UTI. She is currently being treated with Levaquin for that. She also complains of lower extremity edema. She states her right lower extremity is worse than her left however they are both swollen. She does report that she has been less mobile over the last several days to week. 1. acute on chronic right hip pain -limiting ambulation Chest X-Ray 09/21/18 No acute disease Hip X-Ray 09/21/18 Negative. I do not see etiology for the right hip pain. follows with outpatient pain management in review of last outpatient pain management office note recommend increasing Cymbalta increase Cymbalta continue fentanyl patch at 25 mcg Abie PRN PT evaluation - Case d/w Orthpedist. No surgical intervention at this time. Pt to f/u with Orthopedist outpt. - Pt would benefit from continued PT. - Discharge to SNF today. - See discharge orders. BLE edema Venous Doppler Study 09/21/18 Negative for deep venous thrombosis possible related to poor nutrition - improved with lasix - will resume HCTZ upon discharge - lasix 20 mg IV x1 HTN - continue nifedipine 30 mg po daily - Patient recently decreased to Losartan 50 mg by PCP - d/t increased BP readings, I increased back to 100 mg PO daily Chronic hyponatremia - likely from poor intake. - stable during hospitalization - Patient had previously been on salt tablets, but was taken off by PCP - PCP should continue to monitor NA level outpt Depression - increase Cymbalta to 30mg daily E-FORCSE Prescription Drug Monitoring Database has been queried and verified prior to prescribing the controlled substance. Acute pain exception. This patient has normal, predicted, physiological, and time limited response to an adverse mechanical stimulus associated with surgery, trauma, or acute illness as described in my notes. There is a lack of alternative treatment options other than to include the prescribed narcotic treatment for this condition. Time Spent with Patient Total time spent providing and/or coordinating discharge services: Results Impressions ITS Impressions Chest X-Ray 09/21/18 00:00 CONCLUSION: No acute disease Hip X-Ray 09/21/18 09:58 CONCLUSION: Negative. I do not see etiology for the right hip pain. Venous Doppler Study 09/21/18 10:02 CONCLUSION: 1. Negative for deep venous thrombosis Discharge Plan Discharge Disposition Patient Disposition: 03 Discharge to SNF Discharge Condition Condition: Stable Discharge Order Discharge Orders: Discharge Order (Routine); Ordered 09/23/18 Ordered By: Jorge Davila Discharge Details Anticipated Discharge Date: 09/23/18 Physicians Team ED Provider: Kobi Guzmán Primary Care Provider: Terrence Azul Attending Provider: Jorge Davila Other Providers: Nichelle Hdz ; Cammie Kilgore,Valatie Rxs /Orders / Referrals /Forms Prescriptions: New losartan 50 mg Tablet 100 mg PO DAILY Qty: 60 RF: 0 hydrocodone-acetaminophen 7.5-325 mg Tablet 1 tab PO Q6H PRN (Reason: Pain 6-10.) Qty: 50 RF: 0 duloxetine 30 mg Capsule,Delayed Release(Dr/Ec) 30 mg PO DAILY Qty: 30 RF: 0 fentanyl [Duragesic] 25 mcg/hr Patch 72 Hour 1 patch Transdermal Q3D Qty: 10 RF: 0 Continue aspirin 81 mg Tablet,Chewable 81 mg PO DAILY RF: 0 calcium citrate 200 mg (950 mg) Tablet 500 mg PO DAILY RF: 0 omeprazole 20 mg Tablet,Delayed Release (Dr/Ec) 20 mg PO DAILY RF: 0 nifedipine 30 mg Tablet Extended Release 24hr 30 mg PO DAILY RF: 0 Discontinued duloxetine [Cymbalta] 20 mg Capsule,Delayed Release(Dr/Ec) 20 mg PO DAILY RF: 0 losartan 100 mg Tablet 50 mg PO DAILY RF: 0 levofloxacin [Levaquin] 500 mg Tablet 500 mg PO DAILY RF: 0 Referrals: erica bell [Other] - See Instructions Terrence Azul MD [Primary Care Provider] - See Instructions (f/u with PCP, Dr. Eulalio Azul, one week after discharge from SNF) Ruperto Duran MD [Physician] - See Instructions (f/o with Orthopedist, Dr. Ruperto Duran, in 2 weeks) Status ED Status: Left Department
== END 2018-09-23 13:49 ==
LOC: NEPC 09:41 → NEDA 09:41 → NEPFCDU 15:40
PROVIDERS: ADMIT Hospitalist; ATTEND Hospitalist